=== PATIENT | female | born 1980 | race Caucasian/White ===

== ENCOUNTER 2017-10-23 14:49 | Emergency (ER) | payer OTHER ==
[2017-10-23] MEDS ORDERED: Ondansetron 4 MG/2 ML SDV IVPUSH ONE (15:28)
[2017-10-23] MEDS ORDERED: Famotidine 20 MG/2 ML SDV IVPUSH ONE (15:28)
[2017-10-23] MEDS ORDERED: Sodium Chloride 0.9% 10 ML Syringe FLUSH PRN (15:28)
[2017-10-23] MEDS ORDERED: HYDROmorphone 1 MG/ML Syringe IVPUSH ONE (15:28)
[2017-10-23] MEDS ORDERED: Sodium Chloride 0.9% 1,000 ML IV SCH (15:30)
--- NOTE | 2017-10-23 15:38 | EDM.PDOC ---
ED HPI GENERAL MEDICAL PROBLEM - General Chief Complaint: Gastrointestinal Problem Stated Complaint: DIARRHEA/VOMITING Time Seen by Provider: 10/23/17 15:09 Source of Information: Reports: Patient, RN Notes Reviewed - History of Present Illness INITIAL COMMENTS - FREE TEXT/NARRATIVE: 37-year-old female comes in with upper abdominal pain, nausea and vomiting. She has been having difficulty with upper abdominal discomfort worsening over the past several weeks. She's had multiple clinic visits for this. She was started on Carafate 3 days ago and that did seem to be helping. He did go out with a family member to our local [employer] restaurant at noon today but shortly after eating started to develop the upper abdominal pain, burning discomfort nausea and vomiting. The pain does not radiate to her back. Her gallbladder has been previously removed. She already is on high-dose Prilosec 40 mg twice daily. She does have an appointment to see Dr. Fernandez to get up set up for upper GI scope in 2 days. She did take some mag citrate a few days ago, did have some hard stool after that. Abdominal Pain Score (Numeric/FACES): 5 - Related Data Allergies Allergy/AdvReac Type Severity Reaction Status Date / Time latex Allergy Rash Verified 10/23/17 15:02 Home Meds: Home Meds FLUoxetine HCl [Fluoxetine HCl] 40 mg PO DAILY 12/12/14 [History] Omeprazole 40 mg PO BID 10/23/17 [History] Ondansetron HCl [Zofran] 4 mg PO Q6HR PRN 10/23/17 [History] Sucralfate 1 gm PO QID 10/23/17 [History] Past Medical History HEENT History: Reports: Impaired Vision Cardiovascular History: Reports: Other (See Below) Other Cardiovascular History: palpitations at night in the past few weeks Gastrointestinal History: Reports: Other (See Below) Other Gastrointestinal History: IBS 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: Psychiatric History: Reports: Anxiety, Depression - Infectious Disease History Infectious Disease History: Reports: Chicken Pox - Past Surgical History HEENT Surgical History: Reports: Adenoidectomy, Myringotomy w Tube(s), Tonsillectomy Social & Family History - Tobacco Use Smoking Status *Q: Never Smoker Second Hand Smoke Exposure: No - Caffeine Use Caffeine Use: Reports: Coffee, Soda Other Caffeine Use: occassionally - Alcohol Use Days Per Week of Alcohol Use: 0 - Recreational Drug Use Recreational Drug Use: No ED ROS GENERAL - Review of Systems Review Of Systems: See Below Constitutional: Denies: Fever, Chills HEENT: Denies: Throat Pain Respiratory: Denies: Shortness of Breath, Pleuritic Chest Pain Cardiovascular: Reports: Chest Pain (She does have some burning discomfort upper mid chest) GI/Abdominal: Reports: Abdominal Pain (Upper mid abdominal pain and burning), Nausea, Vomiting. Denies: Diarrhea Musculoskeletal: Denies: Back Pain Skin: Reports: No Symptoms Neurological: Reports: No Symptoms ED EXAM, GI/ABD - Physical Exam Exam: See Below General Appearance: Alert, Moderate Distress Throat/Mouth: Normal Inspection, Normal Oropharynx Head: No: Facial Swelling Neck: Supple, Full Range of Motion Respiratory/Chest: No Respiratory Distress, Lungs Clear, Normal Breath Sounds Cardiovascular: Regular Rate, Rhythm GI/Abdominal Exam: Tender (Very tender upper mid abdomen, abdomen otherwise soft and nontender). No: Guarding, Rebound Back Exam: No: CVA Tenderness (L), CVA Tenderness (R) Extremities: Normal Inspection, Normal Range of Motion Neurological: Alert, Oriented, No Motor/Sensory Deficits Skin Exam: Warm, Dry, Normal Color Course - Vital Signs Last Recorded V/S: Last Vital Signs Temp 97.7 F 10/23/17 15:05 Pulse 73 10/23/17 18:37 Resp 15 10/23/17 18:37 BP 130/68 10/23/17 18:37 Pulse Ox 100 10/23/17 18:37 - Orders/Labs/Meds Orders: Active Orders 24 hr Category Date Time Status Peripheral IV Care [RC] . DIRECTED Care 10/23/17 15:29 Active Abdomen 2V AP Flat Upright [CR] Stat Exams 10/23/17 16:24 Taken Sodium Chloride 0.9% [Normal Saline] 1,000 ml Med 10/23/17 15:30 Active IV ONETIME Sodium Chloride 0.9% [Saline Flush] Med 10/23/17 15:28 Active 10 ml FLUSH ASDIRECTED PRN Peripheral IV Insertion Adult [OM.PC] Stat Oth 10/23/17 15:28 Ordered Medication Orders Sodium Chloride (Normal Saline) 1,000 mls @ 999 mls/hr IV ONETIME HALI Last Admin: 10/23/17 15:38 Dose: 999 mls/hr Sodium Chloride (Saline Flush) 10 ml FLUSH ASDIRECTED PRN PRN Reason: Keep Vein Open Last Admin: 10/23/17 15:48 Dose: 10 ml Labs: Laboratory Tests 10/23/17 10/23/17 10/23/17 Range/Units 15:30 15:30 15:30 WBC 7.76 (3.98-10.04) K/mm3 RBC 4.88 (3.98-5.22) M/mm3 Hgb 13.4 (11.2-15.7) gm/L Hct 41.1 (34.1-44.9) % MCV 84.2 (79.4-94.8) fl MCH 27.5 (25.6-32.2) pg MCHC 32.6 (32.2-35.5) g/dl RDW Std Deviation 43.5 (36.4-46.3) fL Plt Count 214 (182-369) K/mm3 MPV 11.3 (9.4-12.3) fl Neut % (Auto) 61.7 (34.0-71.1) % Lymph % (Auto) 22.7 (19.3-51.7) % Moca % (Auto) 12.1 (4.7-12.5) % Eos % (Auto) 2.4 (0.7-5.8) Baso % (Auto) 0.8 (0.1-1.2) % Neut # (Auto) 4.79 (1.56-6.13) K/mm3 Lymph # (Auto) 1.76 (1.18-3.74) K/mm3 Moca # (Auto) 0.94 H (0.24-0.36) K/mm3 Eos # (Auto) 0.19 (0.04-0.36) K/mm3 Baso # (Auto) 0.06 (0.01-0.08) K/mm3 Sodium 142 (136-145) mEq/L Potassium 4.1 (3.5-5.1) mEq/L Chloride 106 (98-107) mEq/L Carbon Dioxide 25 (21-32) mEq/L Anion Gap 15.1 H (5-15) BUN 8 (7-18) mg/dL Creatinine 0.7 (0.55-1.02) mg/dL Est Cr Clr Drug Dosing 121.30 mL/min Estimated GFR (MDRD) > 60 (>60) mL/min BUN/Creatinine Ratio 11.4 L (14-18) Glucose 126 H (74-106) mg/dL Calcium 8.5 (8.5-10.1) mg/dL Total Bilirubin 0.2 (0.2-1.0) mg/dL AST 25 (15-37) U/L ALT 36 (14-59) U/L Alkaline Phosphatase 66 (46-116) U/L Total Protein 7.0 (6.4-8.2) g/dl Albumin 3.2 L (3.4-5.0) g/dl Globulin 3.8 gm/dL Albumin/Globulin Ratio 0.8 L (1-2) Lipase 233 (73-393) U/L HCG, Qual Negative (NEGATIVE) Meds: Medications Generic Name Dose Route Start Last Admin Trade Name Freq PRN Reason Stop Dose Admin Sodium Chloride 1,000 mls @ 999 mls/hr 10/23/17 15:30 10/23/17 15:38 Normal Saline IV 999 mls/hr ONETIME HALI Administration Sodium Chloride 10 ml 10/23/17 15:28 10/23/17 15:48 Saline Flush FLUSH 10 ml ASDIRECTED PRN Administration Keep Vein Open Discontinued Medications Generic Name Dose Route Start Last Admin Trade Name Freq PRN Reason Stop Dose Admin Famotidine 20 mg 10/23/17 15:28 10/23/17 15:43 Pepcid IVPUSH 10/23/17 15:29 20 mg ONETIME ONE Administration Hydromorphone HCl 0.5 mg 10/23/17 15:28 10/23/17 15:41 Dilaudid IVPUSH 10/23/17 15:29 0.5 mg ONETIME ONE Administration Hydromorphone HCl 0.5 mg 10/23/17 16:24 10/23/17 16:35 Dilaudid IVPUSH 10/23/17 16:25 0.5 mg ONETIME ONE Administration Lorazepam 0.25 mg 10/23/17 17:46 10/23/17 17:57 Ativan IVPUSH 10/23/17 17:47 0.25 mg ONETIME ONE Administration Ondansetron HCl 4 mg 10/23/17 15:28 10/23/17 15:38 Zofran IVPUSH 10/23/17 15:29 4 mg ONETIME ONE Administration - Re-Assessments/Exams Free Text/Narrative Re-Assessment/Exam: 10/23/17 17:57. White blood count is normal, chemistries are relatively okay. Have given a total of 2 L of fluid, IV Zofran, IV Dilaudid 0.5 mg IV 2. With that she is resting quite a bit more comfortably although still having some sensation of discomfort. Done a flat and upright of the abdomen and that looks fine. We'll give 0.25 mg Ativan at this time, discharge instructions as documented Departure - Departure Time of Disposition: 17:10 Disposition: Home, Self-Care 01 Condition: Fair Clinical Impression: Vomiting Gastritis Qualifiers: Gastritis type: unspecified gastritis Chronicity: acute Gastritis bleeding: presence of bleeding unspecified Qualified Code(s): K29.00 - Acute gastritis without bleeding - Discharge Information Instructions: Gastritis, Adult, [id number], Nausea and Vomiting, Adult Referrals: Jyoti Avila RELOC[employer] COMMISSIONER [Primary Care Provider] - Forms: ED Department Discharge, ED Return to Work/School Form Additional Instructions: Clear liquids this evening, than very careful bland diet as tolerated. Eat and drink small amounts at a time only. Continue current medications. You may take occasional Maalox or Mylanta in addition if needed for burning discomfort of chest or upper abdomen. See Dr. Fernandez Tram as planned, return to ED as needed. - My Orders Last 24 Hours: My Active Orders 10/23/17 15:28 Sodium Chloride 0.9% [Saline Flush] 10 ml FLUSH ASDIRECTED PRN Peripheral IV Insertion Adult [OM.PC] Stat 10/23/17 15:29 Peripheral IV Care [RC] . DIRECTED 10/23/17 15:30 Sodium Chloride 0.9% [Normal Saline] 1,000 ml IV ONETIME 10/23/17 16:24 Abdomen 2V AP Flat Upright [CR] Stat - Assessment/Plan Last 24 Hours: My Active Orders 10/23/17 15:28 Sodium Chloride 0.9% [Saline Flush] 10 ml FLUSH ASDIRECTED PRN Peripheral IV Insertion Adult [OM.PC] Stat 10/23/17 15:29 Peripheral IV Care [RC] . DIRECTED 10/23/17 15:30 Sodium Chloride 0.9% [Normal Saline] 1,000 ml IV ONETIME 10/23/17 16:24 Abdomen 2V AP Flat Upright [CR] Stat
[2017-10-23] MEDS ORDERED: HYDROmorphone 0.5 MG/0.5 ML Syringe IVPUSH ONE (16:24)
[2017-10-23] MEDS ORDERED: LORazepam 2 MG/ML SDV IVPUSH ONE (17:46)
[2017-10-23 18:37] VITALS: BP 130/68
--- NOTE | 2017-10-24 12:13 | CR ---
Abdomen: Supine and upright views of the abdomen were obtained. Comparison: No prior study. Surgical clips are seen from prior cholecystectomy. Bowel gas pattern is normal. No abnormal calcifications or soft tissue abnormality is identified. Slight scoliosis is present within the spine. No free air is seen on the upright view. Impression: 1. Incidental findings. Nothing acute is appreciated on two-view abdominal x-ray. Diagnostic code #2
== END 2017-10-23 18:40 | disposition home or self-care (01) ==
LOC: JD.ED 14:49
DX: K29.00 Acute gastritis without bleeding (principal); F32.9 Major depressive disorder, single episode, unspecified; Z79.899 Other long term (current) drug therapy; Z91.040 Latex allergy status
CPT/HCPCS: 36415; 74019; 80053; 83690; 84703; 85025; 96361; 96374; 96375; 96376; 99284; J1170; J2060; J2405; J7040; J7050

== ENCOUNTER 2017-11-03 06:56 | Day surgery (SDC) | payer OTHER ==
[~2017-11-03 06:56] MED LIST: Lactated Ringers 1,000 ML IV SCH; Lidocaine 1%/Sod Bicarbonate in NS 8.4% 1 ML Syringe IV PRN; Sodium Chloride 0.9% 10 ML Syringe FLUSH PRN
[2017-11-03] MEDS ORDERED: Lidocaine 1% 4 ML ONE (07:09)
[2017-11-03] MEDS ORDERED: fentaNYL 100 MCG/2 ML SDV ONE (07:10)
[2017-11-03] MEDS ORDERED: Propofol 200 MG/20 ML SDV ONE (07:10)
--- NOTE | 2017-11-03 07:25 | PCM.PREANE ---
Preanesthetic Assessment - Anesthesia/Transfusion/Family Hx Anesthesia History: Prior Anesthesia Without Reaction Family History of Anesthesia Reaction: No Transfusion History: No Prior Transfusion(s) Intubation History: Unknown - Review of Systems General: No Symptoms Pulmonary: No Symptoms Cardiovascular: No Symptoms, Palpitations (occasional with anxiety attack) Gastrointestinal: No Symptoms (GERD), Diarrhea (History of IBS) Neurological: No Symptoms, Headache Other: Reports: Sinus Problem (allergic rhinitis), Depression, Anxiety - Physical Assessment NPO Status Date: 11/02/17 NPO Status Time: 20:30 Pulse: 75 O2 Sat by Pulse Oximetry: 96 Respiratory Rate: 16 Blood Pressure: 112/78 Temperature: 36.3 C Vital Signs: Last Vital Signs Temp 36.3 C 11/03/17 07:00 Pulse 75 11/03/17 07:00 Resp 16 11/03/17 07:00 BP 112/78 11/03/17 07:00 Pulse Ox 96 11/03/17 07:00 Height: 1.78 m Weight: 124.284 kg ASA Class: 2 Mental Status: Alert & Oriented x3 Airway Class: Mallampati = 2 Dentition: Reports: Normal Dentition, Raynham(s), Caries Thyro-Mental Finger Breadths: 3 Mouth Opening Finger Breadths: 3 ROM/Head Extension: Full Lungs: Clear to Auscultation, Normal Respiratory Effort Cardiovascular: Regular Rate, Regular Rhythm, No Murmurs - Lab Values: Lab values reviewed and noted and within acceptable ranges to proceed with scheduled procedure. - Imaging/EKG Impressions: EKG: SR rate=60 - Allergies Allergies/Adverse Reactions: Allergies Allergy/AdvReac Type Severity Reaction Status Date / Time latex Allergy Anaphylactic Verified 11/02/17 14:39 Shock - Anesthesia Plan Pre-Op Medication Ordered: None - Acknowledgements Anesthesia Type Planned: MAC Pt an Appropriate Candidate for the Planned Anesthesia: Yes Alternatives and Risks of Anesthesia Discussed w Pt/Guardian: Yes Pt/Guardian Understands and Agrees with Anesthesia Plan: Yes PreAnesthesia Questionnaire HEENT History: Reports: Allergic Rhinitis, Impaired Vision, Other (See Below) Other HEENT History: right hearing loss, sore throat Cardiovascular History: Reports: Other (See Below) Other Cardiovascular History: palpitations at night Respiratory History: Reports: Other (See Below) Other Respiratory History: cough Gastrointestinal History: Reports: Gastritis, Irritable Bowel Syndrome, Other ( See Below) Other Gastrointestinal History: epigastric pain Genitourinary History: Reports: None COUNTER HAND History: Reports: Musculoskeletal History: Reports: Gout, Other (See Below) Other Musculoskeletal History: foot tendinitis, left foot pain Neurological History: Reports: Headaches, Chronic Psychiatric History: Reports: Anxiety, Depression Endocrine/Metabolic History: Reports: Vitamin D Deficiency, Other (See Below) Other Endocrine/Metabolic History: hair loss, goiter Hematologic History: Reports: None Immunologic History: Reports: None Oncologic (Cancer) History: Reports: None Dermatologic History: Reports: Other (See Below) Other Dermatologic History: contact dermatitis, plantar wart to foot, folliculitis - Infectious Disease History Infectious Disease History: Reports: Chicken Pox - Past Surgical History Head Surgeries/Procedures: Reports: None HEENT Surgical History: Reports: Adenoidectomy, Myringotomy w Tube(s), Tonsillectomy Cardiovascular Surgical History: Reports: None Respiratory Surgical History: Reports: None GI Surgical History: Reports: Cholecystectomy Female Surgical History: Reports: None Male Surgical History: Reports: None Neurological Surgical History: Reports: None Musculoskeletal Surgical History: Reports: None Oncologic Surgical History: Reports: None - SUBSTANCE USE Smoking Status *Q: Never Smoker Second Hand Smoke Exposure: No Days Per Week of Alcohol Use: 0 Recreational Drug Use History: No - HOME MEDS Home Medications: Home Meds FLUoxetine HCl [Fluoxetine HCl] 40 mg PO DAILY 12/12/14 [History] Omeprazole 40 mg PO BID 10/23/17 [History] Ondansetron HCl [Zofran] 4 mg PO Q6HR PRN 10/23/17 [History] Sucralfate 1 gm PO QID 10/23/17 [History] Cholecalciferol (Vitamin D3) [Vitamin D3] 50,000 unit PO WEEKLY 11/02/17 [ History] LORazepam [LORazepam] 0.5 mg PO TID PRN 11/02/17 [History] Mirabegron [Myrbetriq] 25 mg PO DAILY 11/02/17 [History] - CURRENT (IN HOUSE) MEDS Current Meds: Current Medications Lactated Ringer's (Ringers, Lactated) 1,000 mls @ 125 mls/hr IV ASDIRECTED HALI Stop: 11/03/17 23:00 Lidocaine/Sodium Bicarbonate (Buffered Lidocaine 1% In Ns 8.4%) 0.25 ml IV ONETIME PRN PRN Reason: Prior to IV Start Stop: 11/03/17 18:00 Sodium Chloride (Saline Flush) 10 ml FLUSH ASDIRECTED PRN PRN Reason: Keep Vein Open Stop: 11/03/17 18:00 Discontinued Medications Fentanyl (Sublimaze) Confirm Administered Dose 100 mcg .ROUTE .STK-MED ONE Stop: 11/03/17 07:11 Lidocaine HCl (Xylocaine-Mpf 1%) Confirm Administered Dose 4 mls @ as directed .ROUTE .STK-MED ONE Stop: 11/03/17 07:10 Propofol (Diprivan 20 Ml) Confirm Administered Dose 200 mg .ROUTE .STK-MED ONE Stop: 11/03/17 07:11
[2017-11-03] MEDS ORDERED: Midazolam 1 MG/ML 2 ML SDV ONE (07:36)
--- NOTE | 2017-11-03 08:23 | PCM48HPAN ---
Post Anesthesia Note - EVALUATION WITHIN 48HRS OF ANESTHETIC Vital Signs in Normal Range: Yes Patient Participated in Evaluation: Yes Respiratory Function Stable: Yes Airway Patent: Yes Cardiovascular Function Stable: Yes Hydration Status Stable: Yes Pain Control Satisfactory: Yes Nausea and Vomiting Control Satisfactory: Yes Mental Status Recovered: Yes
[2017-11-03 08:27] VITALS: BP 136/85
--- NOTE | 2017-11-03 08:34 | PCM.OPNOTE ---
- General Post-Op/Procedure Note Date of Surgery/Procedure: 11/03/17 Operative Procedure(s): Esophagogastroduodenoscopy with cold forceps biopsy of the antrum body of the stomach and GE junction and proximal esophagus Findings: Some retained food within the stomach but otherwise normal examination Pre Op Diagnosis: Epigastric abdominal pain with a history of delayed gastric emptying Post-Op Diagnosis: Normal endoscopic evaluation Anesthesia Technique: MAC Primary Surgeon: Braden Fernandez Pathology: Proximal esophageal GE junction body of the stomach and antral biopsies EBL in mLs: 0 Complications: None Condition: Good Free Text/Narrative:: After adequate sedation and IV analgesia was obtained with monitoring the patient was placed on her left side. Through a bite block a lubricated upper endoscope was inserted into the esophagus and advanced towards the stomach without difficulty. There was some retained food within the body of the stomach. This was not a bezoar. The scope was advanced towards the antrum and then into the duodenum without difficulty. The second and first part of the duodenum were endoscopically normal with no mass lesions or inflammatory changes seen. There was no scarring within the area of the pylorus or distal antrum. Because of her history I took random biopsy in the antrum for histologic review. Within the retroflexed view there was no hiatal hernia. The cardiac and fundic regions were normal. A biopsy was taken within the body of the stomach for evaluation. There was no peptic change seen. The GE junction was sharp and normal. I took a random biopsy for histologic review. The body of the esophagus was normal but because of her history of took I a random biopsy within the proximal third of the esophagus. The vocal cords were briefly visualized on extubation and were normal. Air was removed as I finished the procedure which she tolerated well. There were no procedural complications.
== END 2017-11-03 08:52 | disposition home or self-care (01) ==
LOC: JD.SDS 06:56
PROVIDERS: ATTEND Surgery
DX: K22.8 Other specified diseases of esophagus (principal); J30.9 Allergic rhinitis, unspecified; F41.9 Anxiety disorder, unspecified; L25.9 Unspecified contact dermatitis, unspecified cause; F32.9 Major depressive disorder, single episode, unspecified; K21.9 Gastro-esophageal reflux disease without esophagitis; B07.0 Plantar wart; H90.5 Unspecified sensorineural hearing loss; E55.9 Vitamin D deficiency, unspecified; Z91.040 Latex allergy status; Z79.899 Other long term (current) drug therapy; Z90.49 Acquired absence of other specified parts of digestive tract; Z90.89 Acquired absence of other organs
CPT/HCPCS: 43239; J2250; J3010; J7120; 00731; J2001; J2704

== ENCOUNTER 2018-02-11 04:52 | Emergency (ER) | payer OTHER ==
[2018-02-11] MEDS ORDERED: Sodium Chloride 0.9% 10 ML Syringe FLUSH PRN (05:23)
[2018-02-11] MEDS ORDERED: Ketorolac 30 MG/ML SDV IVPUSH ONE (05:24)
--- NOTE | 2018-02-11 05:31 | EDM.PDOC ---
ED HPI GENERAL MEDICAL PROBLEM - General Chief Complaint: Neck Problem Stated Complaint: CAN'T MOVE HEAD/STIFF NECK Time Seen by Provider: 02/11/18 05:18 Source of Information: Reports: Patient History Limitations: Reports: No Limitations - History of Present Illness INITIAL COMMENTS - FREE TEXT/NARRATIVE: The patient presents with a headache, neck stiffness and neck pain. She has been going to physical therapy for right shoulder pain. She woke up with some stiffness in her neck yesterday. She was able to work and she had no other problems. This morning she woke up and it is much worse. She cannot move her head without sever pain. She did not injure her neck in any way. She has been having headaches for about 1 week. She has no numbness or weakness with it. She has no fever, chills, cough, chest pain, shortness of breath, abdominal pain , nausea or vomiting. Onset: Gradual Duration: Day(s): (Yesterday) Location: Reports: Head, Neck Quality: Reports: Sharp Severity: Severe Improves with: Reports: Immobilization Worsens with: Reports: Movement Context: Reports: Activity (She woke up with it yesterday and the pain is much worse today) Associated Symptoms: Reports: Headaches. Denies: Chest Pain, Cough, Fever/ Chills, Nausea/Vomiting, Shortness of Breath Neck Pain Score (Numeric/FACES): 8 - Related Data Allergies Allergy/AdvReac Type Severity Reaction Status Date / Time latex Allergy Anaphylactic Verified 02/11/18 05:03 Shock Home Meds: Home Meds Omeprazole 40 mg PO BID PRN 10/23/17 [History] Cholecalciferol (Vitamin D3) [Vitamin D3] 1,000 unit PO WEEKLY 11/02/17 [History ] Cyclobenzaprine [Flexeril] 10 mg PO TID PRN #20 tab 02/11/18 [Rx] Hydrocodone/Acetaminophen [Hydrocodon-Acetaminophen 5-325] 1 - 2 each PO Q6HR PRN #20 tablet 02/11/18 [Rx] Past Medical History HEENT History: Reports: Impaired Vision Other HEENT History: right hearing loss, sore throat Cardiovascular History: Reports: Other (See Below) Other Cardiovascular History: palpitations at night Respiratory History: Reports: Other (See Below) Other Respiratory History: cough Gastrointestinal History: Reports: Other (See Below) Other Gastrointestinal History: IBS Genitourinary History: Reports: None [employer] History: Reports: Musculoskeletal History: Reports: Gout, Other (See Below) Other Musculoskeletal History: foot tendinitis, left foot pain Neurological History: Reports: Headaches, Chronic Psychiatric History: Reports: Anxiety, Depression Endocrine/Metabolic History: Reports: Vitamin D Deficiency, Other (See Below) Other Endocrine/Metabolic History: hair loss, goiter Hematologic History: Reports: None Immunologic History: Reports: None Oncologic (Cancer) History: Reports: None Dermatologic History: Reports: Other (See Below) Other Dermatologic History: contact dermatitis, plantar wart to foot, folliculitis - Infectious Disease History Infectious Disease History: Reports: Chicken Pox - Past Surgical History Head Surgeries/Procedures: Reports: None Respiratory Surgical History: Reports: None Female Surgical History: Reports: None Neurological Surgical History: Reports: None Musculoskeletal Surgical History: Reports: None Oncologic Surgical History: Reports: None Social & Family History - Tobacco Use Smoking Status *Q: Never Smoker - Caffeine Use Caffeine Use: Reports: None Other Caffeine Use: occassionally - Recreational Drug Use Recreational Drug Use: No ED ROS GENERAL - Review of Systems Review Of Systems: See Below Constitutional: Reports: No Symptoms HEENT: Reports: No Symptoms Respiratory: Reports: No Symptoms Cardiovascular: Reports: No Symptoms Endocrine: Reports: No Symptoms GI/Abdominal: Reports: No Symptoms : Reports: No Symptoms Musculoskeletal: Reports: Neck Pain Neurological: Reports: Headache ED EXAM, UPPER BACK/NECK PAIN - Physical Exam Exam: See Below Exam Limited By: No Limitations General Appearance: Alert, No Apparent Distress Ears Exam: Normal External Exam Nose Exam: Normal Inspection Head Exam: Atraumatic, Normocephalic Neck Exam: Muscle Spasm (Right side), Tender Lateral (right side) Cardiovascular/Respiratory: Regular Rate, Rhythm, No M/R/G, Normal Peripheral Pulses, Normal Breath Sounds, No Respiratory Distress GI/Abdominal: Soft, Non-Tender, No Organomegaly, No Mass Extremities: Normal Inspection Neurologic: No Motor/Sensory Deficits, Alert, Normal Mood/Affect, Oriented x 3 Course - Vital Signs Last Recorded V/S: Last Vital Signs Temp 96.1 F 02/11/18 04:57 Pulse 71 02/11/18 04:57 Resp 20 02/11/18 04:57 BP 118/85 02/11/18 04:57 Pulse Ox 97 02/11/18 04:57 - Orders/Labs/Meds Orders: Active Orders 24 hr Category Date Time Status Cardiac Monitoring [RC] . DIRECTED Care 02/11/18 05:23 Active Peripheral IV Care [RC] . DIRECTED Care 02/11/18 05:23 Active Cervical Spine wo Cont [CT] Stat Exams 02/11/18 05:24 Taken Head wo Cont [CT] Stat Exams 02/11/18 05:23 Taken C-REACTIVE PROTEIN [CHEM] Stat Lab 02/11/18 05:30 Results COMPREHENSIVE METABOLIC PN,CMP [CHEM] Stat Lab 02/11/18 05:30 Results HYDROmorphone [Dilaudid] Med 02/11/18 07:01 Once 0.5 mg IVPUSH ONETIME ONE Sodium Chloride 0.9% [Saline Flush] Med 02/11/18 05:23 Active 10 ml FLUSH ASDIRECTED PRN Peripheral IV Insertion Adult [OM.PC] Stat Oth 02/11/18 05:23 Ordered Medication Orders Sodium Chloride (Saline Flush) 10 ml FLUSH ASDIRECTED PRN PRN Reason: Keep Vein Open Labs: Laboratory Tests 02/11/18 02/11/18 Range/Units 05:30 05:30 WBC 9.73 (3.98-10.04) K/mm3 RBC 5.01 (3.98-5.22) M/mm3 Hgb 13.6 (11.2-15.7) gm/L Hct 42.0 (34.1-44.9) % MCV 83.8 (79.4-94.8) fl MCH 27.1 (25.6-32.2) pg MCHC 32.4 (32.2-35.5) g/dl RDW Std Deviation 44.2 (36.4-46.3) fL Plt Count 254 (182-369) K/mm3 MPV 11.5 (9.4-12.3) fl Neut % (Auto) 60.2 (34.0-71.1) % Lymph % (Auto) 26.5 (19.3-51.7) % [place] % (Auto) 9.5 (4.7-12.5) % Eos % (Auto) 2.7 (0.7-5.8) Baso % (Auto) 0.8 (0.1-1.2) % Neut # (Auto) 5.86 (1.56-6.13) K/mm3 Lymph # (Auto) 2.58 (1.18-3.74) K/mm3 [place] # (Auto) 0.92 H (0.24-0.36) K/mm3 Eos # (Auto) 0.26 (0.04-0.36) K/mm3 Baso # (Auto) 0.08 (0.01-0.08) K/mm3 Sodium 140 (136-145) mEq/L Potassium 4.1 (3.5-5.1) mEq/L Chloride 105 (98-107) mEq/L Carbon Dioxide 22 (21-32) mEq/L Anion Gap 17.1 H (5-15) BUN 12 (7-18) mg/dL Creatinine 0.6 (0.55-1.02) mg/dL Est Cr Clr Drug Dosing 141.52 mL/min Estimated GFR (MDRD) > 60 (>60) mL/min BUN/Creatinine Ratio 20.0 H (14-18) Glucose 113 H (74-106) mg/dL Calcium 8.8 (8.5-10.1) mg/dL Total Bilirubin 0.2 (0.2-1.0) mg/dL AST 15 (15-37) U/L ALT 30 (14-59) U/L Alkaline Phosphatase 62 (46-116) U/L C-Reactive Protein 1.4 H* (<1.0) mg/dL Globulin 3.9 gm/dL Albumin/Globulin Ratio 0.9 L (1-2) Meds: Medications Generic Name Dose Route Start Last Admin Trade Name Freq PRN Reason Stop Dose Admin Sodium Chloride 10 ml 02/11/18 05:23 Saline Flush FLUSH ASDIRECTED PRN Keep Vein Open Discontinued Medications Generic Name Dose Route Start Last Admin Trade Name Freq PRN Reason Stop Dose Admin Diazepam 5 mg 02/11/18 05:24 02/11/18 05:42 Valium IVPUSH 02/11/18 05:25 5 mg ONETIME ONE Administration Ketorolac Tromethamine 30 mg 02/11/18 05:24 02/11/18 05:40 Toradol IVPUSH 02/11/18 05:25 30 mg ONETIME ONE Administration - Re-Assessments/Exams Free Text/Narrative Re-Assessment/Exam: 02/11/18 05:30 I ordered an IV saline lock, valium 5mg IV, toradol 30mg IV, labs and a CT of her head and neck. 02/11/18 07:02 Her labs look good. The CT of her head and cervical spine looks good. She feels a little better but now she has more of a headache. I will give her a dose of dilaudid and I will need to get her on some flexeril and hydrocodone for pain. She is already in PT for her shoulder. Departure - Departure Time of Disposition: 07:05 Disposition: Home, Self-Care 01 Condition: Good Clinical Impression: Cervical strain Qualifiers: Encounter type: initial encounter Qualified Code(s): S16.1XXA - Strain of muscle, fascia and tendon at neck level, initial encounter - Discharge Information Prescriptions: Hydrocodone/Acetaminophen [Hydrocodon-Acetaminophen 5-325] 1 - 2 each PO Q6HR PRN #20 tablet PRN Reason: Pain Cyclobenzaprine [Flexeril] 10 mg PO TID PRN #20 tab PRN Reason: Pain Referrals: Jyoti Avila [employer] [Primary Care Provider] - 1 Week Forms: ED Department Discharge Additional Instructions: Take an antiinflammatory such as motrin or aleve. You can also take some flexeril and hydrocodone for pain. Try ice or heat and use which ever feels better. Follow up with physical therapy and Jyoti Avila. Please return if you are worse. - My Orders Last 24 Hours: My Active Orders 02/11/18 05:23 Cardiac Monitoring [RC] . DIRECTED Peripheral IV Care [RC] . DIRECTED Head wo Cont [CT] Stat Sodium Chloride 0.9% [Saline Flush] 10 ml FLUSH ASDIRECTED PRN Peripheral IV Insertion Adult [OM.PC] Stat 02/11/18 05:24 Cervical Spine wo Cont [CT] Stat 02/11/18 05:30 C-REACTIVE PROTEIN [CHEM] Stat COMPREHENSIVE METABOLIC PN,CMP [CHEM] Stat 02/11/18 07:01 HYDROmorphone [Dilaudid] 0.5 mg IVPUSH ONETIME ONE - Assessment/Plan Last 24 Hours: My Active Orders 02/11/18 05:23 Cardiac Monitoring [RC] . DIRECTED Peripheral IV Care [RC] . DIRECTED Head wo Cont [CT] Stat Sodium Chloride 0.9% [Saline Flush] 10 ml FLUSH ASDIRECTED PRN Peripheral IV Insertion Adult [OM.PC] Stat 02/11/18 05:24 Cervical Spine wo Cont [CT] Stat 02/11/18 05:30 C-REACTIVE PROTEIN [CHEM] Stat COMPREHENSIVE METABOLIC PN,CMP [CHEM] Stat 02/11/18 07:01 HYDROmorphone [Dilaudid] 0.5 mg IVPUSH ONETIME ONE
[2018-02-11] MEDS ORDERED: HYDROmorphone 0.5 MG/0.5 ML SYRINGE IVPUSH ONE (07:01)
[2018-02-11 07:37] VITALS: BP 117/74
--- NOTE | 2018-02-11 09:12 | CT ---
Head CT Technique: Multiple axial sections through the brain were obtained. Intravenous contrast was not utilized. Comparison: Prior head CT exam of 10/21/16. Findings: Ventricles along with basal cisterns and sulci over the convexities are within normal limits for the patient's age. No abnormal parenchymal densities are seen. No evidence of intracranial hemorrhage. No midline shift or mass effect is seen. No acute osseous abnormality is seen. Incidental small retention cyst is noted within the right maxillary sinus measuring around 3 mm. Impression: 1. Incidental small retention cyst within the right maxillary sinus. 2. No acute intracranial abnormality is seen. Diagnostic code #2 I agree with preliminary report from [facility], finalized at 02/11/18, 7:42 AM Central Time
--- NOTE | 2018-02-11 09:51 | CT ---
CT cervical spine Technique: Multiple axial sections were obtained from above C1 inferiorly to the top of T3. Reconstructed sagittal and coronal images were reviewed. Comparison: No prior cervical spine imaging is available. Findings: Posterior spurring is noted at C5-C6. Vertebral bodies and posterior arches are intact with no fracture being seen. No bony central or bony neural foraminal stenosis is seen. No abnormal subluxation is seen on the reconstructed sagittal images. Mild scoliosis is noted on the reconstructed coronal view. Impression: 1. Minimal degenerative change and scoliosis. 2. Nothing acute is appreciated on CT study of the cervical spine. Diagnostic code #2 I agree with preliminary report from [facility], finalized at 02/11/18, 7:44 AM Central Time
== END 2018-02-11 07:36 | disposition home or self-care (01) ==
LOC: JD.ED 04:52
DX: S16.1XXA Strain of muscle, fascia and tendon at neck level, initial encounter (principal); Z91.040 Latex allergy status; Z79.899 Other long term (current) drug therapy; X58.XXXA Exposure to other specified factors, initial encounter
CPT/HCPCS: 36415; 70450; 72125; 80053; 85025; 86140; 96374; 96375; 99284; J1170; J1885; J3360; J7050

== ENCOUNTER 2018-11-18 06:54 | Day surgery (SDC) | payer OTHER ==
[~2018-11-18 06:54] MED LIST changes: -Lactated Ringers 1,000 ML IV SCH; +Lidocaine 1%/Sod Bicarbonate in NS 8.4% 1 ML Syringe IDERM PRN; -Lidocaine 1%/Sod Bicarbonate in NS 8.4% 1 ML Syringe IV PRN
--- NOTE | 2018-11-18 07:03 | PCM.PREANE ---
Preanesthetic Assessment - Anesthesia/Transfusion/Family Hx Anesthesia History: Prior Anesthesia Without Reaction Family History of Anesthesia Reaction: No Transfusion History: No Prior Transfusion(s) Intubation History: Unknown - Review of Systems General: No Symptoms, Fatigue Pulmonary: No Symptoms (No inhaler for two months.) Cardiovascular: No Symptoms, Lightheadedness Gastrointestinal: No Symptoms (GERD, delayed gastric emptying/History of gastric ulcers-no NSAIDS), Constipation, Diarrhea Neurological: No Symptoms, Headache Other: Reports: None (history of DVT/PE), Thyroid Problems, Sinus Problem ( allergic rhinitis), Anxiety - Physical Assessment NPO Status Date: 11/17/18 NPO Status Time: 21:00 Pulse: 77 O2 Sat by Pulse Oximetry: 95 Respiratory Rate: 12 Blood Pressure: 119/80 Temperature: 36.2 C Height: 1.78 m Weight: 127 kg ASA Class: 2 Mental Status: Alert & Oriented x3 Airway Class: Mallampati = 2 Dentition: Reports: Normal Dentition, Caries Thyro-Mental Finger Breadths: 3 Mouth Opening Finger Breadths: 3 ROM/Head Extension: Full Lungs: Clear to Auscultation, Normal Respiratory Effort Cardiovascular: Regular Rate, Regular Rhythm, No Murmurs - Lab Values: Labs reviewed and noted and within acceptable ranges to proceed with scheduled procedure. - Imaging/EKG Impressions: EKG: SR rate=70 CXR: unremarkable - Allergies Allergies/Adverse Reactions: Allergies Allergy/AdvReac Type Severity Reaction Status Date / Time latex Allergy Anaphylactic Verified 11/17/18 13:14 Shock - Anesthesia Plan Pre-Op Medication Ordered: None - Acknowledgements Anesthesia Type Planned: General Anesthesia Pt an Appropriate Candidate for the Planned Anesthesia: Yes Alternatives and Risks of Anesthesia Discussed w Pt/Guardian: Yes Pt/Guardian Understands and Agrees with Anesthesia Plan: Yes PreAnesthesia Questionnaire HEENT History: Reports: Allergic Rhinitis, Impaired Vision, Sinusitis, Other ( See Below) Other HEENT History: right hearing loss, sore throat, recurrent ear infeciton, sinus infections Cardiovascular History: Reports: Blood Clots/VTE/DVT, Other (See Below) Other Cardiovascular History: palpitations at night Respiratory History: Reports: PE, Other (See Below) Other Respiratory History: cough Gastrointestinal History: Reports: GERD, Other (See Below) Other Gastrointestinal History: IBS, delayed gastric emptyinh, gastric ulcer Genitourinary History: Reports: None ENROLLMENT NURSE History: Reports: , Other (See Below) Other OB/BYN History: abnormal uterine bleeding, vaginal discomfort Musculoskeletal History: Reports: Gout, Other (See Below) Other Musculoskeletal History: foot tendinitis, left foot pain Neurological History: Reports: Headaches, Chronic Psychiatric History: Reports: Anxiety, Depression Endocrine/Metabolic History: Reports: Vitamin D Deficiency, Other (See Below) Other Endocrine/Metabolic History: hair loss, goiter Hematologic History: Reports: None Immunologic History: Reports: None Oncologic (Cancer) History: Reports: None Dermatologic History: Reports: Other (See Below) Other Dermatologic History: contact dermatitis, plantar wart to foot, folliculitis - Infectious Disease History Infectious Disease History: Reports: Chicken Pox - Past Surgical History Head Surgeries/Procedures: Reports: None HEENT Surgical History: Reports: Adenoidectomy, Myringotomy w Tube(s), Tonsillectomy Cardiovascular Surgical History: Reports: None Respiratory Surgical History: Reports: None GI Surgical History: Reports: Cholecystectomy Female Surgical History: Reports: None Male Surgical History: Reports: None Endocrine Surgical History: Reports: None Neurological Surgical History: Reports: None Musculoskeletal Surgical History: Reports: None Oncologic Surgical History: Reports: None - SUBSTANCE USE Smoking Status *Q: Never Smoker Recreational Drug Use History: No - HOME MEDS Home Medications: Home Meds Omeprazole 40 mg PO DAILY PRN 10/23/17 [History] Cholecalciferol (Vitamin D3) [Vitamin D3] 1,000 unit PO Q72H 11/02/17 [History] Mirabegron [Myrbetriq] 25 mg PO DAILY 08/12/18 [History] Albuterol Sulfate [Proair Hfa] 1 - 2 puff INH Q4H PRN 11/17/18 [History] Loratadine/Pseudoephedrine [Alavert D-12 Allergy-Sinus] 1 tab PO BID PRN [History] - CURRENT (IN HOUSE) MEDS Current Meds: Current Medications Lactated Ringer's (Ringers, Lactated) 1,000 mls @ 125 mls/hr IV ASDIRECTED HALI Stop: 11/18/18 23:00 Lidocaine/Sodium Bicarbonate (Buffered Lidocaine 1% In Ns 8.4%) 0.25 ml IDERM ONETIME PRN PRN Reason: Prior to IV Start Stop: 11/18/18 18:00 Sodium Chloride (Saline Flush) 10 ml FLUSH ASDIRECTED PRN PRN Reason: Keep Vein Open Stop: 11/18/18 18:00
[2018-11-18] MEDS ORDERED: Succinylcholine/Normal Saline 100 MG/5 ML Syringe ONE (07:40)
[2018-11-18] MEDS ORDERED: Lactated Ringers 1,000 ML ONE (07:40)
[2018-11-18] MEDS ORDERED: Dexamethasone 4 MG/ML 5 ML MDV ONE (07:40)
[2018-11-18] MEDS ORDERED: Ondansetron 4 MG/2 ML SDV ONE (07:40)
[2018-11-18] MEDS ORDERED: Lidocaine 1% 6 ML ONE (07:40)
[2018-11-18] MEDS ORDERED: Propofol 200 MG/20 ML SDV ONE (07:41)
[2018-11-18] MEDS ORDERED: HYDROmorphone 0.5 MG/0.5 ML Syringe ONE (07:41)
[2018-11-18] MEDS ORDERED: fentaNYL 100 MCG/2 ML SDV ONE (07:42)
[2018-11-18] MEDS ORDERED: Midazolam 1 MG/ML 2 ML SDV ONE (07:42)
[2018-11-18] MEDS: Lactated Ringers 1,000 ML IV SCH ×2 (08:07→10:53)
[2018-11-18] MEDS ORDERED: diphenhydrAMINE 50 MG/ML SDV IVPUSH PRN (08:18)
[2018-11-18] MEDS ORDERED: HYDROmorphone 0.5 MG/0.5 ML Syringe IVPUSH PRN (08:18)
[2018-11-18] MEDS ORDERED: Ondansetron 4 MG/2 ML SDV IVPUSH PRN (08:18)
--- NOTE | 2018-11-18 09:08 | PCM.POSTAN ---
POST ANESTHESIA ASSESSMENT - MENTAL STATUS Mental Status: Alert - VITAL SIGNS Pulse Rate: 80 SaO2: 96 (2LPM nasal cannula) Resp Rate: 12 Blood Pressure: 147/93 Temperature: 36.3 C - RESPIRATORY Respiratory Status: Respiratory Rate WNL, Airway Patent, O2 Saturation Stable, Supplemental Oxygen - CARDIOVASCULAR CV Status: Pulse Rate WNL, Blood Pressure Stable - GASTROINTESTINAL GI Status: No Symptoms - POST OP HYDRATION Hydration Status: Adequate & Stable
[2018-11-18] MEDS: fentaNYL 100 MCG/2 ML SDV IVPUSH PRN ×2 (09:15→09:32)
--- NOTE | 2018-11-18 09:21 | PCM.OPNOTE ---
- General Post-Op/Procedure Note Date of Surgery/Procedure: 11/18/18 Operative Procedure(s): Hysteroscopy with dilation and curettage Findings: Grossly normal-appearing cervix, endometrial lining with increased thickness noted in the posterior and lateral sides of the uterus, grossly normal- appearing right tubal ostia, left tubal ostia was not well visualized Pre Op Diagnosis: Abnormal uterine bleeding, endometrial polyp on endometrial biopsy, menorrhagia with irregular menstrual cycle and dysmenorrhea Post-Op Diagnosis: Same but with thickened endometrial lining and no polyp visualized on hysteroscopy Anesthesia Technique: General ET Tube Primary Surgeon: Topher Sanches Anesthesia Provider: Liliya Amanda Leaf Sorter: Idris Miramontes ([place] student) Reason Leaf Sorter Was Necessary: Teaching Role of Leaf Sorter: Watching procedure in learning capacity Pathology: Endometrial curettings Fluid Replacement, Intraop: 600 Output, Urine Amount: 0 (Voided prior to procedure) EBL in mLs: 10 Complications: None Condition: Good Free Text/Narrative:: Procedure in Detail: Patient was seen in the preop area and counseled on risks, benefits and alternatives of the procedure and consents were reviewed prior to going back to the OR. She was taken back to OR # and given general anesthesia with endotracheal tube that was placed without difficulty. She was placed in dorsal lithotomy position using Yellofin stirrups. She was prepped and draped in a normal sterile fashion. A weighted speculum was placed in the vagina and the cervix was visualized. The anterior lip of the cervix was grasped with a single toothed tenaculum. The cervix was serially dilated to a 15 English Bola dilator. A 5 mm hysteroscope was inserted into the uterine cavity and advanced to the uterine fundus. The right ostia was visualized and the left ostia was not visualized. The uterine cavity was noted to be overall normal in appearance with thickened endometrial tissue noted in the bilateral sides and posterior joy of the uterus. The hysteroscope was removed and a sharp curette was used to circumferentially curette the entirety of the uterine cavity where good cri was present in all directions. The curettings were sent for pathology. The camera was inserted again and there was no visualization of a endometrial polyp. The procedure was complete at this time and the tenaculum was removed from the cervix and good hemostasis was noted from the tenaculum sites. All instruments were removed from the vagina. All needle and sponge counts were correct x 2. The patient was awoken and taken back to the recovery room in stable condition. The patient will be discharged home when she is ambulating, tolerating PO, pain is well controlled with PO medications and she is voiding normally. She will follow up with Dr. Sanches in the clinic within the next 1-2 weeks. She was given strict precautions to call the medical office or go to the Emergency Department if she is having severe vaginal bleeding of more than 1 pad per hour for three hours, uncontrollable pain, nausea, vomiting, or if she is having a fever greater than 100.4 F.
[2018-11-18] MEDS ORDERED: Acetaminophen/HYDROcodone 325-5 MG Tab PO PRN (09:41)
[2018-11-18] MEDS ORDERED: HYDROmorphone 0.5 MG/0.5 ML Syringe IVPUSH ONE (10:10)
[2018-11-18 12:17] VITALS: BP 124/82
== END 2018-11-18 12:13 | disposition home or self-care (01) ==
LOC: JD.SDS 06:54
PROVIDERS: ATTEND Obstetrics & Gynecology
DX: N92.1 Excessive and frequent menstruation with irregular cycle (principal); R93.89 Abnormal findings on diagnostic imaging of other specified body structures; N94.6 Dysmenorrhea, unspecified; N83.202 Unspecified ovarian cyst, left side; E55.9 Vitamin D deficiency, unspecified; F41.9 Anxiety disorder, unspecified; F32.9 Major depressive disorder, single episode, unspecified; J01.90 Acute sinusitis, unspecified; J30.9 Allergic rhinitis, unspecified; K21.9 Gastro-esophageal reflux disease without esophagitis; K58.9 Irritable bowel syndrome, unspecified; Z91.040 Latex allergy status; Z91.048 Other nonmedicinal substance allergy status; Z79.899 Other long term (current) drug therapy
CPT/HCPCS: 58558; 81001; J0131; J0330; J1100; J1170; J2001; J2250; J2405; J2704; J3010; J7120; 00952

== ENCOUNTER 2018-12-01 07:47 | Emergency (ER) | payer OTHER ==
[2018-12-01 08:03] VITALS: BP 135/83
[2018-12-01] MEDS ORDERED: Acetaminophen 325 MG Tab PO ONE (08:45)
[2018-12-01] MEDS ORDERED: Albuterol/Ipratropium 3.0-0.5 MG/3 ML Neb Soln NEB ONE (08:45)
[2018-12-01] MEDS ORDERED: Ondansetron 4 MG Tab.DIS PO ONE (08:46)
[2018-12-01] MEDS ORDERED: diphenhydrAMINE 50 MG Cap PO ONE (08:46)
--- NOTE | 2018-12-01 08:58 | EDM.PDOC ---
<Jacobo Wray - Last Filed: 12/01/18 09:39> ED HPI GENERAL MEDICAL PROBLEM - General Chief Complaint: Respiratory Problem Stated Complaint: POSSIBLE FLU SYSTEMS Time Seen by Provider: 12/01/18 08:09 Source of Information: Reports: Patient, Family () History Limitations: Reports: No Limitations - History of Present Illness INITIAL COMMENTS - FREE TEXT/NARRATIVE: Pt reports sudden onset of chills, body aches, rhinorrhea, non-productive cough yesterday morning 11/30 and was seen in the walk-in clinic where a rapid influenza test was negative. Today her symptoms have progressed with a temp of 102 F at home, as well as SOB and "sharp" chest pain along the right sternal boarder that is illicit with cough that last up to 1 minute, moderate headache, dizziness, nausea, stiff neck, sore throat, and wheezing. She has taken Tylenol last night around 2330 with minimal relief. Her intake of food or fluids is poor due to nausea. Her has had similar symptoms over the past week but since has resolved. She has received the influenza vaccine this season. Pt is sp endometrial dilation, curettage, and endometrial ablation requiring general anesthesia 11/18/18. She reports no history of asthma but states she has an inhaler at home which she has not used. 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 and an "innocent arrhythmia" during Onset: Sudden Onset Date: 11/30/18 (In the morning) Duration: Getting Worse Location: Reports: Generalized Quality: Reports: Ache (Generalized), Sharp (Chest pain with cough lasting 1 minute) Generalized Pain Score (Numeric/FACES): 6 - Related Data Allergies Allergy/AdvReac Type Severity Reaction Status Date / Time latex Allergy Anaphylactic Verified 12/01/18 08:03 Shock Home Meds: Home Meds Omeprazole 40 mg PO DAILY PRN 10/23/17 [History] Cholecalciferol (Vitamin D3) [Vitamin D3] 1,000 unit PO Q72H 11/02/17 [History] Mirabegron [Myrbetriq] 50 mg PO DAILY 08/12/18 [History] Albuterol Sulfate [Proair Hfa] 1 - 2 puff INH Q4H PRN 11/17/18 [History] Loratadine/Pseudoephedrine [Alavert D-12 Allergy-Sinus] 1 tab PO BID PRN [History] Ondansetron [Zofran ODT] 4 mg PO Q4H PRN #30 tab.dis 11/18/18 [Rx] Azithromycin [Zithromax] 250 mg PO DAILY #6 tab 12/01/18 [Rx] Codeine/Promethazine [Phenergan with Codeine] 5 - 10 ml PO Q6HR PRN #240 ml [Rx] Ondansetron [Zofran ODT] 4 mg PO Q6H PRN #20 tab.dis 12/01/18 [Rx] Past Medical History HEENT History: Reports: Allergic Rhinitis, Impaired Vision, Sinusitis, Other ( See Below) Other HEENT History: right hearing loss, sore throat, recurrent ear infeciton, sinus infections Cardiovascular History: Reports: Blood Clots/VTE/DVT, Other (See Below) Other Cardiovascular History: palpitations at night Respiratory History: Reports: PE, Other (See Below) Other Respiratory History: cough Gastrointestinal History: Reports: GERD, Other (See Below) Other Gastrointestinal History: IBS, delayed gastric emptyinh, gastric ulcer Genitourinary History: Reports: None ELECTION JUDGE History: Reports: Endometrial Ablation (11/18/18 hysteroscopy, endometrial biopsey, curettage, endometrial ablation by Dr. Topher Hurst), , Other (See Below) Other ELECTION JUDGE History: abnormal uterine bleeding, vaginal discomfort Musculoskeletal History: Reports: Gout, Other (See Below) Other Musculoskeletal History: foot tendinitis, left foot pain Neurological History: Reports: Headaches, Chronic Psychiatric History: Reports: Anxiety, Depression Endocrine/Metabolic History: Reports: Vitamin D Deficiency, Other (See Below) Other Endocrine/Metabolic History: hair loss, goiter Hematologic History: Reports: None Immunologic History: Reports: None Oncologic (Cancer) History: Reports: None Dermatologic History: Reports: Other (See Below) Other Dermatologic History: contact dermatitis, plantar wart to foot, folliculitis - Infectious Disease History Infectious Disease History: Reports: Chicken Pox - Past Surgical History Head Surgeries/Procedures: Reports: None HEENT Surgical History: Reports: Adenoidectomy, Myringotomy w Tube(s), Tonsillectomy Cardiovascular Surgical History: Reports: None Respiratory Surgical History: Reports: None GI Surgical History: Reports: Cholecystectomy Female Surgical History: Reports: None Endocrine Surgical History: Reports: None Neurological Surgical History: Reports: None Musculoskeletal Surgical History: Reports: None Oncologic Surgical History: Reports: None Social & Family History - Family History Endocrine/Metabolic: Reports: Diabetes, type II (unspecified) - Tobacco Use Smoking Status *Q: Never Smoker Second Hand Smoke Exposure: No - Caffeine Use Caffeine Use: Reports: None Other Caffeine Use: occassionally - Recreational Drug Use Recreational Drug Use: No ED ROS GENERAL - Review of Systems Review Of Systems: See Below Constitutional: Reports: Fever, Chills, Malaise, Fatigue. Denies: Night Sweats , Weight Loss HEENT: Reports: Rhinitis, Throat Pain. Denies: Ear Discharge, Ear Pain, Eye Pain, Hearing Loss, Throat Swelling Respiratory: Reports: Shortness of Breath, Wheezing, Pleuritic Chest Pain, Cough. Denies: Sputum, Hemoptysis Cardiovascular: Reports: Chest Pain (sharp, only with cough, lasting 1 minute), Lightheadedness, Orthopnea. Denies: Claudication, Edema, Palpitations, Syncope Endocrine: Reports: No Symptoms GI/Abdominal: Reports: Decreased Appetite, Nausea (with food and fluids). Denies: Abdominal Pain, Constipation, Diarrhea, Distension, Vomiting : Reports: No Symptoms Musculoskeletal: Reports: Other (Generalized myalgia) Skin: Reports: No Symptoms. Denies: Jaundice, Dryness, Bruising, Rash Neurological: Reports: Dizziness, Headache. Denies: Confusion, Numbness, Paresthesia, Syncope Psychiatric: Reports: Depression (h/o ) Hematologic/Lymphatic: Reports: No Symptoms Immunologic: Reports: No Symptoms ED EXAM, GENERAL - Physical Exam Exam: See Below Exam Limited By: No Limitations General Appearance: Alert, Mild Distress, Obese Eye Exam: Bilateral Eye: EOMI (Intact), PERRL, Other (Sclera anicteric, No conjuntival injection or swelling.) Ears: Normal External Exam, Normal Canal, Hearing Grossly Normal, Other Ear Exam: Bilateral Ear: Auricle Normal, Canal Normal, TM Dull (Effusion), TM Bulging (mild), Other (No erythema. Umbo visualized bilaterally) Nose: Normal Inspection, Normal Mucosa, No Blood, Clear Rhinorrhea Throat/Mouth: Normal Inspection, Normal Lips, Normal Teeth, Normal Oropharynx, Normal Voice, No Airway Compromise Head: Atraumatic, Normocephalic. No: Sinus Tenderness Neck: Normal Inspection, Supple, Non-Tender, Full Range of Motion. No: Lymphadenopathy (L), Lymphadenopathy (R) Respiratory/Chest: No Respiratory Distress, Crackles (RLL), Wheezing (Moderate Inspiratory LLL and mild late expiratory bilaterally), Prolonged Expiration. No : Pleural Rub Cardiovascular: Normal Peripheral Pulses, No Edema, No Gallop, No JVD, No Murmur , No Rub, Tachycardia Peripheral Pulses: 2+: Radial (L), Radial (R), Dorsalis Pedis (L), Dorsalis Pedis (R) GI/Abdominal: Normal Bowel Sounds, Soft, No Organomegaly, No Distention, No Mass , Tender (Mild in LUQ). No: Splenomegaly (Female) Exam: Deferred Rectal (Female) Exam: Deferred Back Exam: Normal Inspection, Full Range of Motion Extremities: Normal Inspection, Normal Range of Motion, Non-Tender, No Pedal Edema, Normal Capillary Refill Neurological: Alert, Oriented, CN II-XII Intact, Normal Cognition, Normal Reflexes, No Motor/Sensory Deficits Psychiatric: Normal Affect, Normal Mood Skin Exam: Warm, Dry, Intact, Normal Color, No Rash Lymphatic: No Adenopathy Course - Vital Signs Last Recorded V/S: Last Vital Signs Temp 100.5 F 12/01/18 09:12 Pulse 102 H 12/01/18 07:57 Resp 18 12/01/18 07:57 BP 135/83 12/01/18 07:57 Pulse Ox 94 L 12/01/18 08:45 Orthostatic Blood Pressure [ 125/90 Standing] Orthostatic Blood Pressure [ 132/83 Sitting] Orthostatic Blood Pressure [ 132/77 Supine] - Orders/Labs/Meds Orders: Active Orders 24 hr Category Date Time Status Peripheral IV Care [RC] . DIRECTED Care 12/01/18 10:03 Active RT Aerosol Therapy [RC] ASDIRECTED Care 12/01/18 08:45 Active Sodium Chloride 0.9% [Normal Saline] 1,000 ml Med 12/01/18 10:03 Active IV ONETIME Sodium Chloride 0.9% [Saline Flush] Med 12/01/18 10:03 Active 10 ml FLUSH ASDIRECTED PRN Peripheral IV Insertion Adult [OM.PC] Routine Oth 12/01/18 10:03 Ordered Medication Orders Sodium Chloride (Normal Saline) 1,000 mls @ 1,000 mls/hr IV ONETIME ONE Stop: 12/01/18 11:02 Last Admin: 12/01/18 10:15 Dose: 1,000 mls/hr Sodium Chloride (Saline Flush) 10 ml FLUSH ASDIRECTED PRN PRN Reason: Keep Vein Open Last Admin: 12/01/18 10:16 Dose: 10 ml Meds: Medications Generic Name Dose Route Start Last Admin Trade Name Freq PRN Reason Stop Dose Admin Sodium Chloride 1,000 mls @ 1,000 mls/hr 12/01/18 10:03 12/01/18 10:15 Normal Saline IV 12/01/18 11:02 1,000 mls/hr ONETIME ONE Administration Sodium Chloride 10 ml 12/01/18 10:03 12/01/18 10:16 Saline Flush FLUSH 10 ml ASDIRECTED PRN Administration Keep Vein Open Discontinued Medications Generic Name Dose Route Start Last Admin Trade Name Freq PRN Reason Stop Dose Admin Acetaminophen 975 mg 12/01/18 08:45 12/01/18 09:12 Tylenol PO 12/01/18 08:46 975 mg NOW ONE Administration Albuterol/Ipratropium 3 ml 12/01/18 08:45 12/01/18 09:37 Duoneb 3.0-0.5 Mg/3 Ml NEB 12/01/18 08:46 3 ml ONETIME ONE Administration Diphenhydramine HCl 50 mg 12/01/18 08:46 12/01/18 09:12 Benadryl PO 12/01/18 08:47 50 mg ONETIME ONE Administration Hydromorphone HCl 0.5 mg 12/01/18 10:04 12/01/18 10:16 Dilaudid IVPUSH 12/01/18 10:05 0.5 mg ONETIME ONE Administration Ondansetron HCl 4 mg 12/01/18 08:46 12/01/18 09:12 Zofran Odt PO 12/01/18 08:47 4 mg ONETIME ONE Administration - Re-Assessments/Exams Free Text/Narrative Re-Assessment/Exam: 12/01/18 08:50 Pt presents with findings suggestive of influenza with reactive airway features. I am also questioning dehydration and/or pneumonia. We ill obtain rapid influenza test, and 1V CXR. We will provide duoneb x1, tylenol x1 for fever and pain, Zofranx1 for nausea, and Benadryl for headache. Discussed presentation and POC with Dr. Otto. 12/01/18 09:28 Nurse notified my of orthostatics significant for increase of HR >30 BMP from supine to standing without significant changes in systolic/diastolic blood pressure. Will consider increasing oral fluid intake or IV fluids. Will discuss options with DR. Otto 12/01/18 09:39 CXR- Read by Dr. Yury Rodarte MD. "Nothing acute is seen on Portable chest x- ray". Results reviewed by Dr. Otto Departure - Departure Disposition: Home, Self-Care 01 Clinical Impression: Bronchitis - Discharge Information Prescriptions: Codeine/Promethazine [Phenergan with Codeine] 5 - 10 ml PO Q6HR PRN #240 ml PRN Reason: Cough Azithromycin [Zithromax] 250 mg PO DAILY #6 tab Ondansetron [Zofran ODT] 4 mg PO Q6H PRN #20 tab.dis PRN Reason: Nausea\\vomiting Referrals: Jyoti Avila, [employer]ESSOR [Primary Care Provider] - 1 Week Forms: ED Department Discharge Additional Instructions: Take the medication as prescribed. Take tylenol for any fever. Drink plenty of fluids. Please return if you are worse. - My Orders Last 24 Hours: My Active Orders 12/01/18 08:45 RT Aerosol Therapy [RC] ASDIRECTED 12/01/18 10:03 Peripheral IV Care [RC] . DIRECTED Sodium Chloride 0.9% [Normal Saline] 1,000 ml IV ONETIME Sodium Chloride 0.9% [Saline Flush] 10 ml FLUSH ASDIRECTED PRN Peripheral IV Insertion Adult [OM.PC] Routine - Assessment/Plan Last 24 Hours: My Active Orders 12/01/18 08:45 RT Aerosol Therapy [RC] ASDIRECTED 12/01/18 10:03 Peripheral IV Care [RC] . DIRECTED Sodium Chloride 0.9% [Normal Saline] 1,000 ml IV ONETIME Sodium Chloride 0.9% [Saline Flush] 10 ml FLUSH ASDIRECTED PRN Peripheral IV Insertion Adult [OM.PC] Routine <Ministerio Otto - Last Filed: 12/01/18 10:59> Course - Re-Assessments/Exams Free Text/Narrative Re-Assessment/Exam: 12/01/18 10:54 I examined the patient myself and I agree with Benedicto's assessment and plan. Her influenza was negative and her CXR shows no infiltrate. I feel she has bronchitis. I will get her on a Z-ariel, phenergan with codeine and some zofran. Departure - Departure Time of Disposition: 10:55 Condition: Good - Discharge Information *PRESCRIPTION DRUG MONITORING PROGRAM REVIEWED*: Not Applicable *COPY OF PRESCRIPTION DRUG MONITORING REPORT IN PATIENT NISHANT: Not Applicable
--- NOTE | 2018-12-01 09:30 | CR ---
Chest: Portable view of the chest was obtained. Comparison: Prior chest x-ray of 08/12/[address] of 08/12/18. Heart size and mediastinum are within normal limits. Lungs are clear. Bony structures are unremarkable. Incidental surgical clips are seen from prior cholecystectomy. Impression: 1. Nothing acute is seen on portable chest x-ray. Diagnostic code #2
[2018-12-01] MEDS ORDERED: Sodium Chloride 0.9% 10 ML Syringe FLUSH PRN (10:03)
[2018-12-01] MEDS ORDERED: Sodium Chloride 0.9% 1,000 ML IV ONE (10:03)
[2018-12-01] MEDS ORDERED: HYDROmorphone 1 MG/ML Syringe IVPUSH ONE (10:04)
== END 2018-12-01 11:41 | disposition home or self-care (01) ==
LOC: JD.ED 07:47
DX: J40 Bronchitis, not specified as acute or chronic (principal); K21.9 Gastro-esophageal reflux disease without esophagitis; F41.9 Anxiety disorder, unspecified; F32.9 Major depressive disorder, single episode, unspecified; Z79.899 Other long term (current) drug therapy; Z91.040 Latex allergy status
CPT/HCPCS: 71045; 87804; 94640; 96361; 96374; 99284; A9270; J1170; J7040; J7620-GY

== ENCOUNTER 2019-06-30 14:57 | Emergency (ER) | payer OTHER ==
[2019-06-30] MEDS ORDERED: Metoclopramide 10 MG/2 ML SDV IVPUSH ONE (15:57)
[2019-06-30] MEDS ORDERED: diphenhydrAMINE 50 MG/ML SDV IVPUSH ONE (15:58)
[2019-06-30] MEDS ORDERED: HYDROmorphone 0.5 MG/0.5 ML Syringe IVPUSH ONE (15:58)
[2019-06-30] MEDS ORDERED: Sodium Chloride 0.9% 1,000 ML IV SCH (16:00)
[2019-06-30] MEDS ORDERED: Ketorolac 30 MG/ML SDV IVPUSH SCH (16:00)
--- NOTE | 2019-06-30 16:03 | EDM.PDOC ---
ED HPI GENERAL MEDICAL PROBLEM - General Chief Complaint: Headache Stated Complaint: HEADACHE/DIZZINESS Time Seen by Provider: 06/30/19 15:42 Source of Information: Reports: Patient History Limitations: Reports: No Limitations - History of Present Illness INITIAL COMMENTS - FREE TEXT/NARRATIVE: 39-year-old female presents to the ED with a generalized headache but primarily occipital frontal pressure discomfort bilaterally. Associated mild nausea. Patient has been struggling with intermittent problems with severe vertigo and tinnitus in her right ear off and on since May. She usually has milder headaches controlled with Motrin or Excedrin but no relief with these medications today. One week ago June 23 she developed sudden loss of hearing in her right ear. Her ear nose and throat surgeon has placed her on a tapering dose of prednisone starting with 60 mg daily and weaning her every 3 days by 10 mg. Currently she is on 40 mg daily and is due to go to 30 mg tomorrow. She has some loose diarrhea stools that have developed over the last few days as well. This is second time she's been placed on a course of prednisone since onset of vertigo symptoms and tinnitus in May of this year. He is being followed by ear nose and throat surgeon in [place]. Recently diagnosed with suspect Mnire's disease. However MRI of her brain has been completed sometime between May and now and she was sent apparently identified to have multiple white lesions in the frontal lobes which would be suggestive or worrisome for multiple sclerosis. She is now scheduled for neurology consult. Onset: Today Onset Date: 05/23/19 (Initial event was in May of this year. Sudden recurrence of severe symptoms with loss of hearing and increased vertigo June 23.) Duration: Week(s):, Waxing/Waning Location: Reports: Face (Right ear high-pitched tinnitus and loss of hearing) Quality: Reports: Other (Headache is described as constant deep throbbing aching pain. [place]) Severity: Moderate (in both temporal scalp sides of her head. genitalia) Improves with: Reports: None Worsens with: Reports: Movement (Certain movements) Context: Reports: Other. 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: Other (see below) (Excedrin Migraine.) Headache Pain Score (Numeric/FACES): 5 - Related Data Allergies Allergy/AdvReac Type Severity Reaction Status Date / Time latex Allergy Anaphylactic Verified 06/30/19 15:25 Shock Home Meds: Home Meds Omeprazole 40 mg PO DAILY PRN 10/23/17 [History] Cholecalciferol (Vitamin D3) [Vitamin D3] 1,000 unit PO Q72H 11/02/17 [History] Mirabegron [Myrbetriq] 50 mg PO DAILY 08/12/18 [History] Albuterol Sulfate [Proair Hfa] 1 - 2 puff INH Q4H PRN 11/17/18 [History] Loratadine/Pseudoephedrine [Alavert D-12 Allergy-Sinus] 1 tab PO BID PRN [History] Ondansetron [Zofran ODT] 4 mg PO Q4H PRN #30 tab.dis 11/18/18 [Rx] Azithromycin [Zithromax] 250 mg PO DAILY #6 tab 12/01/18 [Rx] Codeine/Promethazine [Phenergan with Codeine] 5 - 10 ml PO Q6HR PRN #240 ml [Rx] Ondansetron [Zofran ODT] 4 mg PO Q6H PRN #20 tab.dis 12/01/18 [Rx] Past Medical History HEENT History: Reports: Allergic Rhinitis, Impaired Vision, Sinusitis, Other ( See Below) Other HEENT History: right hearing loss, sore throat, recurrent ear infeciton, sinus infections Cardiovascular History: Reports: Blood Clots/VTE/DVT, Other (See Below) Other Cardiovascular History: palpitations at night Respiratory History: Reports: PE, Other (See Below) Other Respiratory History: cough Gastrointestinal History: Reports: GERD, Other (See Below) Other Gastrointestinal History: IBS, delayed gastric emptyinh, gastric ulcer Genitourinary History: Reports: None COUNCIL MEMBER History: Reports: Endometrial Ablation, , Other (See Below) Other COUNCIL MEMBER History: abnormal uterine bleeding, vaginal discomfort Musculoskeletal History: Reports: Gout, Other (See Below) Other Musculoskeletal History: foot tendinitis, left foot pain Neurological History: Reports: Headaches, Chronic Psychiatric History: Reports: Anxiety, Depression Endocrine/Metabolic History: Reports: Vitamin D Deficiency, Other (See Below) Other Endocrine/Metabolic History: hair loss, goiter Hematologic History: Reports: None Immunologic History: Reports: None Oncologic (Cancer) History: Reports: None Dermatologic History: Reports: Other (See Below) Other Dermatologic History: contact dermatitis, plantar wart to foot, folliculitis - Infectious Disease History Infectious Disease History: Reports: Chicken Pox - Past Surgical History Head Surgeries/Procedures: Reports: None HEENT Surgical History: Reports: Adenoidectomy, Myringotomy w Tube(s), Tonsillectomy Cardiovascular Surgical History: Reports: None Respiratory Surgical History: Reports: None GI Surgical History: Reports: Cholecystectomy Female Surgical History: Reports: None Endocrine Surgical History: Reports: None Neurological Surgical History: Reports: None Musculoskeletal Surgical History: Reports: None Oncologic Surgical History: Reports: None Social & Family History - Family History Endocrine/Metabolic: Reports: Diabetes, type II - Tobacco Use Smoking Status *Q: Never Smoker - Caffeine Use Caffeine Use: Reports: Coffee Other Caffeine Use: occassionally - Recreational Drug Use Recreational Drug Use: No - Living Situation & Occupation Living situation: Reports: Occupation: Employed ED ROS GENERAL - Review of Systems Review Of Systems: See Below Constitutional: Reports: Malaise, Fatigue, Decreased Appetite. Denies: Fever, Chills HEENT: Reports: Vertigo ( vertigo. been a recurrent problem since May 23 when it occurred suddenly. ), Other (S right ear associated with tinnitus and) Respiratory: Reports: No Symptoms Cardiovascular: Reports: No Symptoms. Denies: Blood Pressure Problem Endocrine: Reports: Fatigue GI/Abdominal: Reports: Diarrhea (3-4 loose stools today to yesterday.) : Reports: No Symptoms Musculoskeletal: Reports: No Symptoms Skin: Reports: No Symptoms Neurological: Reports: Dizziness, Headache, Other (Vertigo.). Denies: Numbness , Paresthesia, Tingling Psychiatric: Reports: Depression (She is on Lexapro and) Hematologic/Lymphatic: Reports: No Symptoms ( trazodone to help sleep.) Immunologic: Reports: No Symptoms - Physical Exam Exam: See Below Exam Limited By: No Limitations General Appearance: Alert, WD/WN, Mild Distress, Other (/BP is 136/80 with pulse ox of 98%.) Eye Exam: Bilateral Eye: Normal Inspection (No nystagmus.) Ears: Other (Right tympanic membrane is mildly retracted suggestive of a serous otitis media.) Nose: Nasal Swelling (He does have swelling of the turbinates bilaterally worse on the right compared to the left. Restraint due to fogging of my arthroscope I could not tell if she had any significant) Throat/Mouth: Normal Inspection, Normal Lips, Normal Oropharynx ( nasal polyps forming.), Other Head Exam: Atraumatic, Normocephalic (Uvula is in the midline.) Neck: Normal Inspection, Supple, Non-Tender, Full Range of Motion. No: Lymphadenopathy (L), Lymphadenopathy (R) Respiratory/Chest: No Respiratory Distress, Lungs Clear, Normal Breath Sounds, No Accessory Muscle Use, Chest Non-Tender Cardiovascular: Normal Peripheral Pulses, Regular Rate, Rhythm, No Edema, No Murmur, No Rub GI/Abdominal: Normal Bowel Sounds, Soft, Non-Tender, No Organomegaly, No Abnormal Bruit Neuro Exam (Abbreviated): Alert, Oriented, CN II-XII Intact, Normal Cognition, No Motor/Sensory Deficits. No: Normal Gait (Mildly ataxic.) Extremities: Normal Inspection, Normal Range of Motion, Non-Tender, No Pedal Edema Psychiatric: Normal Affect, Normal Mood Skin Exam: Warm, Dry, Intact, Normal Color, No Rash Course - Vital Signs Last Recorded V/S: Last Vital Signs Temp 36.1 C 06/30/19 15:21 Pulse 69 06/30/19 19:43 Resp 18 06/30/19 15:21 BP 101/70 06/30/19 19:43 Pulse Ox 100 06/30/19 19:43 - Orders/Labs/Meds Labs: Laboratory Tests 06/30/19 06/30/19 Range/Units 16:24 16:24 WBC 15.02 H (3.98-10.04) K/mm3 RBC 4.91 (3.98-5.22) M/mm3 Hgb 13.3 (11.2-15.7) gm/dl Hct 40.7 (34.1-44.9) % MCV 82.9 (79.4-94.8) fl MCH 27.1 (25.6-32.2) pg MCHC 32.7 (32.2-35.5) g/dl RDW Std Deviation 47.2 H (36.4-46.3) fL Plt Count 298 (182-369) K/mm3 MPV 11.2 (9.4-12.3) fl Neut % (Auto) 81.5 H (34.0-71.1) % Lymph % (Auto) 12.1 L (19.3-51.7) % Burke % (Auto) 5.1 (4.7-12.5) % Eos % (Auto) 0 L (0.7-5.8) Baso % (Auto) 0.3 (0.1-1.2) % Neut # (Auto) 12.25 H (1.56-6.13) K/mm3 Lymph # (Auto) 1.81 (1.18-3.74) K/mm3 Burke # (Auto) 0.77 H (0.24-0.36) K/mm3 Eos # (Auto) 0.00 L (0.04-0.36) K/mm3 Baso # (Auto) 0.04 (0.01-0.08) K/mm3 Manual Slide Review Normal smear Sodium 138 (136-145) mEq/L Potassium 4.2 (3.5-5.1) mEq/L Chloride 105 (98-107) mEq/L Carbon Dioxide 24 (21-32) mEq/L Anion Gap 13.2 (5-15) BUN 11 (7-18) mg/dL Creatinine 0.7 (0.55-1.02) mg/dL Est Cr Clr Drug Dosing 118.99 mL/min Estimated GFR (MDRD) > 60 (>60) mL/min BUN/Creatinine Ratio 15.7 (14-18) Glucose 117 H (74-106) mg/dL Calcium 9.2 (8.5-10.1) mg/dL Magnesium 2.2 (1.8-2.4) mg/dl Total Bilirubin 0.3 (0.2-1.0) mg/dL AST 19 (15-37) U/L ALT 62 H (14-59) U/L Alkaline Phosphatase 58 (46-116) U/L Total Protein 6.9 (6.4-8.2) g/dl Albumin 3.3 L (3.4-5.0) g/dl Globulin 3.6 gm/dL Albumin/Globulin Ratio 0.9 L (1-2) Meds: Medications Discontinued Medications Generic Name Dose Route Start Last Admin Trade Name Ruthy PRN Reason Stop Dose Admin Diphenhydramine HCl 12.5 mg 06/30/19 15:58 06/30/19 16:59 Benadryl IVPUSH 06/30/19 15:59 12.5 mg ONETIME ONE Administration Hydromorphone HCl 0.5 mg 06/30/19 15:58 06/30/19 17:07 Dilaudid IVPUSH 06/30/19 15:59 0.5 mg ONETIME ONE Administration Sodium Chloride 1,000 mls @ 250 mls/hr 06/30/19 16:00 06/30/19 16:39 Normal Saline IV 250 mls/hr ASDIRECTED HALI Administration Ketorolac Tromethamine 30 mg 06/30/19 16:00 06/30/19 17:04 Toradol IVPUSH 30 mg ONETIME HALI Administration Lorazepam 0.5 mg 06/30/19 18:09 06/30/19 18:23 Ativan IVPUSH 06/30/19 18:10 0.5 mg ONETIME ONE Administration Metoclopramide HCl 7.5 mg 06/30/19 15:57 06/30/19 16:48 Reglan IVPUSH 06/30/19 15:58 7.5 mg ONETIME ONE Administration - Radiology Interpretation Free Text/Narrative:: 39-year-old female presents the ED primarily because of a severe headache that just won't go away with Excedrin Migraine and Motrin today. Patient has been plagued by recurrent bouts of tinnitus and vertigo involving her right ear and last Wednesday complete loss of hearing in her right ear. It is felt that she is developing Mnire's disease. The right ear is infected at this time. She is currently on a weaning dose of prednisone starting with 60 mg last Wednesday by her ear nose and throat physician and weaning by 1 tablet every 3 days. Tomorrow she is to start 30 mg daily. He feels puffy like she is retaining fluid. Blood pressure is okay at present. She states she still significantly vertiginous with certain movements. Mild associated nausea. Neuro exam is completely normal. Right eardrum is pierced to be slightly retracted compatible with an MANDO. Plan I'm going to use give her IV fluids D5 normal saline at 250 mils per hour. I will give her Dilaudid 0.5 mg IV with Toradol 30 mg IV and Reglan 7.5 mg IV and Benadryl 12.5 mg IV due to the fact that she is on Lexapro and trazodone to prevent any dystonic reaction. - Re-Assessments/Exams Free Text/Narrative Re-Assessment/Exam: 06/30/19 17:33 Labs reveal an elevated white count at 15.02 likely from steroid effect. The differential shows 82% neutrophils. This is on auto differential. Hemoglobin 13.3 with hematocrit of 40.7. Platelet count 298,000. Sodium 138 with potassium of 4.2. Chloride is 15 with a bicarbonate of 24. And a gap is 13.2. BUN is 11 with a creatinine of 0.7. GFR remains greater than 60. Glucose 117. Calcium 9.2. Magnesium 2.2. Liver function reveals a mildly elevated ALT at 62. Alk phosphatase is 58. Total protein 6.9 with an albumin fraction slightly low at 3.3. 06/30/19 18:09 Still has a left frontal headache. She became pretty nauseated and upset stomach from the Dilaudid. I am going to give her a small dose of Ativan 0.5 mg IV position help her vertigo as well. 06/30/19 19:40: She is feeling better. We had her up walking in the [place] and she did fairly well even with a reduction of vertigo symptoms. She will therefore be discharged to home. Continue current prednisone dosage and medications. She is pretty fatigued from the medications and will be going home to bed. Departure - Departure Time of Disposition: 19:29 Disposition: Home, Self-Care 01 Condition: Fair Clinical Impression: Tension-type headache, Vertigo, Tinnitus of right ear - Discharge Information *PRESCRIPTION DRUG MONITORING PROGRAM REVIEWED*: Not Applicable *COPY OF PRESCRIPTION DRUG MONITORING REPORT IN PATIENT NISHANT: Not Applicable Instructions: Vertigo, [id number], Tension Headache, Adult, [id number] Referrals: Jyoti Avila, BARREL RIFLER HOOK [Primary Care Provider] - Forms: ED Department Discharge Additional Instructions: Evaluation the emergency room today in regards to worsening headache as the day has gone on. You have been receiving investigations and treatment for recurrent tinnitus and vertigo in your right ear since mid May of this last year. You' re being followed closely by ENT surgeon. Scheduled to see a neurologist in the near future. Unclear what caused the headache today. Proved to be completely normal. Is not a normal side effect of steroids but can be from elevation of fluids. There was no metabolic abdomen maladies appreciated in your lab work and your blood pressure remained in the normal range in the emergency department. You're treated with a combination of medications to help with the vertigo symptoms as well as the headache. You received Toradol 30 mg IV with Reglan 7.5 mg IV and Benadryl 12.5 mg IV to prevent any side effects between the Reglan and your antidepressant medications. You also received Dilaudid 0.5 mg IV initially. An hour later you received lorazepam 0.5 mg IV and did seem to help completely resolve the headache and improve some of the vertigo symptoms as well. I would suggest taking Claritin-D 12 hour release once daily every morning for the next 6-7 days to see if it will help alleviate some of the middle ea eustachian tube dysfunction identified with eardrum retraction on the right side today.
[2019-06-30] MEDS ORDERED: LORazepam 2 MG/ML SDV IVPUSH ONE (18:09)
[2019-06-30 19:44] VITALS: BP 101/70; PULSE 69
== END 2019-06-30 19:45 | disposition home or self-care (01) ==
LOC: JD.ED 14:57
DX: G44.209 Tension-type headache, unspecified, not intractable (principal); H93.11 Tinnitus, right ear; R42 Dizziness and giddiness; K21.9 Gastro-esophageal reflux disease without esophagitis; Z86.718 Personal history of other venous thrombosis and embolism; Z91.040 Latex allergy status; Z79.899 Other long term (current) drug therapy
CPT/HCPCS: 36415; 80053; 83735; 85025; 96361; 96374; 96375; 99284; J1170; J1200; J1885; J2060; J2765; J7040

== ENCOUNTER 2019-12-01 15:51 | Emergency (ER) | payer OTHER ==
[2019-12-01 16:22] VITALS: BP 117/71; PULSE 64
[2019-12-01] MEDS ORDERED: Ketorolac 30 MG/ML SDV IVPUSH SCH (16:30)
[2019-12-01] MEDS ORDERED: Sodium Chloride 0.9% 1,000 ML IV SCH (16:30)
[2019-12-01] MEDS ORDERED: Metoclopramide 10 MG/2 ML SDV IVPUSH ONE (16:31)
[2019-12-01] MEDS ORDERED: HYDROmorphone 0.5 MG/0.5 ML Syringe IVPUSH ONE (16:31)
[2019-12-01] MEDS ORDERED: diphenhydrAMINE 50 MG/ML SDV IVPUSH ONE ×2 (16:31→17:32)
--- NOTE | 2019-12-01 16:34 | EDM.PDOC ---
ED HPI GENERAL MEDICAL PROBLEM - General Chief Complaint: Headache Stated Complaint: HEADACHE Time Seen by Provider: 12/01/19 16:20 Source of Information: Reports: Patient History Limitations: Reports: No Limitations - History of Present Illness INITIAL COMMENTS - FREE TEXT/NARRATIVE: 39-year-old female presents to the ED with a constant migraine equivalent headache for the last 2 weeks. Last weekend she took her triptan medication twice on Wednesday and once on Wednesday and then was advised by neurology services to get not use it any further. It was not very successful in relieving the headache at any rate. All week she has been taking Excedrin Migraine with some minimal relief of the headache. Of note patient had an MRI done back in June last year which revealed numerous white spots in her brain which were worrisome for multiple sclerosis. However it proved that these are vascular injury secondary to recurrent chronic migraines. About a month ago she suddenly lost hearing once again in her left ear and had associated vertigo symptoms. She was once again started on high-dose steroids and is currently weaning off. She is currently on 5 mg a day. Hearing is not quite returned to normal and she is still a little bit vertiginous with certain movements i.e. loses her balance. Ringing humming buzzing in her ear or tinnitus is also improved but again not gone. She is photophobic and sensitive to sounds. She presented to the ED in June 30, 2019 with exactly the same complaints Onset Date: 11/19/19 Duration: Day(s):, Constant, Waxing/Waning Location: Reports: Head (Some days are worse than others but the headache never goes away. Generalized headache) Quality: Reports: Ache, Throbbing, Other (She did sensitivity to light and sound.) Severity: Moderate Improves with: Reports: Other (Still in a dark room.) Worsens with: Reports: Other Context: Denies: Activity, Exercise, Lifting, Sick Contact, Trauma, Other Associated Symptoms: Reports: Headaches, Other (Has been drinking a lot of water.). Denies: No Other Symptoms, Confusion, Chest Pain, Cough, cough w sputum, Diaphoresis, Fever/Chills, Loss of Appetite, Malaise, Nausea/Vomiting, Rash, Seizure, Shortness of Breath, Syncope Treatments [employer]: Reports: Other (see below) (Sed rate migraine) Headache Pain Score (Numeric/FACES): 4 - Related Data Allergies Allergy/AdvReac Type Severity Reaction Status Date / Time latex Allergy Anaphylactic Verified 12/01/19 16:23 Shock Home Meds: Home Meds Loratadine/Pseudoephedrine [Alavert D-12 Allergy-Sinus] 1 tab PO BID PRN [History] Ondansetron [Zofran ODT] 4 mg PO Q6H PRN #20 tab.dis 12/01/18 [Rx] DULoxetine [Cymbalta] 1 cap PO DAILY 12/01/19 [History] Rizatriptan Benzoate [Rizatriptan] 10 mg PO BID PRN 12/01/19 [History] predniSONE [Prednisone] 5 mg PO DAILY 12/01/19 [History] Past Medical History HEENT History: Reports: Allergic Rhinitis, Impaired Vision, Sinusitis, Other ( See Below) Other HEENT History: right hearing loss, sore throat, recurrent ear infeciton, sinus infections Cardiovascular History: Reports: Blood Clots/VTE/DVT, Other (See Below) Other Cardiovascular History: palpitations at night Respiratory History: Reports: PE, Other (See Below) Other Respiratory History: cough Gastrointestinal History: Reports: GERD, Other (See Below) Other Gastrointestinal History: IBS, delayed gastric emptyinh, gastric ulcer Genitourinary History: Reports: None DIRECTOR OF EVENTS History: Reports: Endometrial Ablation, , Other (See Below) Other DIRECTOR OF EVENTS History: abnormal uterine bleeding, vaginal discomfort Musculoskeletal History: Reports: Gout, Other (See Below) Other Musculoskeletal History: foot tendinitis, left foot pain Neurological History: Reports: Headaches, Chronic Psychiatric History: Reports: Anxiety, Depression Endocrine/Metabolic History: Reports: Vitamin D Deficiency, Other (See Below) Other Endocrine/Metabolic History: hair loss, goiter Hematologic History: Reports: None Immunologic History: Reports: None Oncologic (Cancer) History: Reports: None Dermatologic History: Reports: Other (See Below) Other Dermatologic History: contact dermatitis, plantar wart to foot, folliculitis - Infectious Disease History Infectious Disease History: Reports: Chicken Pox - Past Surgical History Head Surgeries/Procedures: Reports: None HEENT Surgical History: Reports: Adenoidectomy, Myringotomy w Tube(s), Tonsillectomy Cardiovascular Surgical History: Reports: None Respiratory Surgical History: Reports: None GI Surgical History: Reports: Cholecystectomy Female Surgical History: Reports: None Endocrine Surgical History: Reports: None Neurological Surgical History: Reports: None Musculoskeletal Surgical History: Reports: None Oncologic Surgical History: Reports: None Social & Family History - Family History Endocrine/Metabolic: Reports: Diabetes, type II - Caffeine Use Caffeine Use: Reports: Coffee Other Caffeine Use: occassionally - Living Situation & Occupation Living situation: Reports: Occupation: Employed ED ROS GENERAL - Review of Systems Review Of Systems: See Below Constitutional: Reports: Malaise, Weakness, Fatigue, Decreased Appetite. Denies : Fever, Chills HEENT: Reports: Hearing Loss (Slowly regaining the hearing in her left ear.), Vertigo, Other Cardiovascular: Reports: No Symptoms Endocrine: Reports: No Symptoms GI/Abdominal: Reports: No Symptoms : Reports: No Symptoms Musculoskeletal: Reports: No Symptoms Skin: Reports: No Symptoms Neurological: Reports: Headache Psychiatric: Reports: No Symptoms Hematologic/Lymphatic: Reports: No Symptoms Immunologic: Reports: No Symptoms - Physical Exam Exam: See Below Exam Limited By: No Limitations General Appearance: Alert, WD/WN, No Apparent Distress, Other (Temperature is 36.6. Heart rate is 64 in sinus respiratory is 18 BP 117/71. Pulse ox 99% on room air) Eye Exam: Bilateral Eye: Normal Inspection, PERRL (No nystagmus) Ears: Normal TMs Throat/Mouth: Normal Inspection, Normal Lips, Normal Oropharynx, Other (Uvula is in the midline) Head Exam: Atraumatic, Normocephalic Neck: Normal Inspection, Supple, Full Range of Motion, Tender Lateral Neuro Exam (Abbreviated): Alert, Oriented, CN II-XII Intact, Normal Cognition, Normal Gait, No Motor/Sensory Deficits, Other (Normal rapid alternating movements normal [id number] exam.) Psychiatric: Normal Affect, Normal Mood Skin Exam: Warm, Dry, Intact, Normal Color, No Rash Course - Vital Signs Last Recorded V/S: Last Vital Signs Temp 36.6 C 12/01/19 16:15 Pulse 64 12/01/19 16:15 Resp 18 12/01/19 16:15 BP 117/71 12/01/19 16:15 Pulse Ox 99 12/01/19 16:15 - Orders/Labs/Meds Orders: Active Orders 24 hr Category Date Time Status Ketorolac [Toradol] Med 12/01/19 16:30 Active 30 mg IVPUSH ONETIME Sodium Chloride 0.9% [Normal Saline] 1,000 ml Med 12/01/19 16:30 Active IV ASDIRECTED Medication Orders Sodium Chloride (Normal Saline) 1,000 mls @ 125 mls/hr IV ASDIRECTED HALI Last Admin: 12/01/19 16:54 Dose: 125 mls/hr Ketorolac Tromethamine (Toradol) 30 mg IVPUSH ONETIME HALI Last Admin: 12/01/19 16:55 Dose: 30 mg Labs: Laboratory Tests 12/01/19 Range/Units 16:51 Sodium 141 (136-145) mEq/L Potassium 3.7 (3.5-5.1) mEq/L Chloride 104 (98-107) mEq/L Carbon Dioxide 27 (21-32) mEq/L Anion Gap 13.7 (5-15) BUN 12 (7-18) mg/dL Creatinine 0.7 (0.55-1.02) mg/dL Est Cr Clr Drug Dosing 118.99 mL/min Estimated GFR (MDRD) > 60 (>60) mL/min BUN/Creatinine Ratio 17.1 (14-18) Glucose 86 (74-106) mg/dL Calcium 9.4 (8.5-10.1) mg/dL Magnesium 2.0 (1.8-2.4) mg/dl Total Bilirubin 0.5 (0.2-1.0) mg/dL AST 21 (15-37) U/L ALT 67 H (14-59) U/L Alkaline Phosphatase 64 (46-116) U/L Total Protein 7.2 (6.4-8.2) g/dl Albumin 3.6 (3.4-5.0) g/dl Globulin 3.6 gm/dL Albumin/Globulin Ratio 1.0 (1-2) Meds: Medications Generic Name Dose Route Start Last Admin Trade Name Freq PRN Reason Stop Dose Admin Sodium Chloride 1,000 mls @ 125 mls/hr 12/01/19 16:30 12/01/19 16:54 Normal Saline IV 125 mls/hr ASDIRECTED HALI Administration Ketorolac Tromethamine 30 mg 12/01/19 16:30 12/01/19 16:55 Toradol IVPUSH 30 mg ONETIME HALI Administration Discontinued Medications Generic Name Dose Route Start Last Admin Trade Name Ruthy PRN Reason Stop Dose Admin Diphenhydramine HCl 25 mg 12/01/19 16:31 12/01/19 16:54 Benadryl IVPUSH 12/01/19 16:32 25 mg ONETIME ONE Administration Diphenhydramine HCl 12.5 mg 12/01/19 17:32 Benadryl IVPUSH 12/01/19 17:33 ONETIME ONE Hydromorphone HCl 0.5 mg 12/01/19 16:31 Dilaudid IVPUSH 12/01/19 16:32 ONETIME ONE Metoclopramide HCl 10 mg 12/01/19 16:31 12/01/19 16:54 Reglan IVPUSH 12/01/19 16:32 10 mg ONETIME ONE Administration - Radiology Interpretation Free Text/Narrative:: 39-year-old female presents to the ED with a constant headache for the last 2 weeks. Associated loss of hearing in her left ear with associated mild vertigo. Improved after a course of high-dose steroids and weaning protocol. Blood pressure is satisfactory. She came to the ED in the hopes of receiving medication to control her headache. Plan Toradol 30 mg IV with Reglan 10 mg IV and Benadryl 25 mg IV with Dilaudid 0.5 mg IV. - Re-Assessments/Exams Free Text/Narrative Re-Assessment/Exam: 12/01/19 17:33 Chemistry is back reveals a normal sodium at 141 and a potassium of 3.7. Chloride is 104 with a bicarb of 27. Anion gap is 13.7. BUN was 12 GFR remains greater than 60. Glucose was 86 calcium is 9.4. Magnesium was 2.0. Liver function normal other than slightly elevated ALT at 67. She should be probably checked for hepatitis C at some point in the future alk phosphatase is 64. Total protein 7.2 with an albumin fraction of 3.6. There does not appear to be any adverse effects metabolically from taking high- dose steroids . On reevaluation the patient's headache pain is dissipated down to 1 or 2 out of 10. She is feeling still quite restless i.e. mild akathisia most likely from the Reglan. I did increase the dose from 7.5 last time to 10 mg this time and she did receive Benadryl 25 mg but in spite of this developed akathisia. I will repeat Benadryl 12.5 mg IV now for relief of the symptoms. She then feels she will be able to go home and sleep/rest. Departure - Departure Time of Disposition: 17:56 Disposition: Home, Self-Care 01 Condition: Fair Clinical Impression: Migraine Qualifiers: Migraine type: without aura Status migrainosus presence: without status migrainosus Intractability: not intractable Qualified Code(s): G43.009 - Migraine without aura, not intractable, without status migrainosus - Discharge Information *PRESCRIPTION DRUG MONITORING PROGRAM REVIEWED*: Not Applicable *COPY OF PRESCRIPTION DRUG MONITORING REPORT IN PATIENT NISHANT: Not Applicable Instructions: Recurrent Migraine Headache Referrals: Jyoti Avila [facility] PULVER[facility]ER [Primary Care Provider] - Forms: ED Department Discharge Additional Instructions: Evaluation in the emergency room today in regards to persistent headache for the better part of 2 weeks which has been waxing and waning in intensity. Today was a bit worse with increased photosensitivity and increased sensitivity to sounds. You were advised by your neurologist not to use any further triptan' s which were not all that effective at any rate last weekend. You have been taking Excedrin Migraine most of the week which takes the edge off the headache but will not take it away. Today received intravenous fluids and medication Reglan 10 mg which seemed to cause some restlessness and uneasy feelings which we call akathisia. Please let us know this on next visit so that we will reduce the dosage of Reglan or Compazine if they are used for headache relief. They work well as they work on the migraine trigger center in our brain. Also received medications Toradol 30 mg and Benadryl 37.5 mg in total. Also received Dilaudid 0.5 mg IV for headache relief. Does not home to sleep/rest for the next 4 to 6 hours to see if he can break the headache cycle. Sepsis Event Note - Evaluation Sepsis Screening Result: No Definite Risk - Focused Exam Vital Signs: Vital Signs Temp Pulse Resp BP Pulse Ox 12/01/19 16:15 36.6 C 64 18 117/71 99 Date Exam was Performed: 12/01/19 Time Exam was Performed: 17:55 - My Orders Last 24 Hours: My Active Orders 12/01/19 16:30 Ketorolac [Toradol] 30 mg IVPUSH ONETIME Sodium Chloride 0.9% [Normal Saline] 1,000 ml IV ASDIRECTED - Assessment/Plan Last 24 Hours: My Active Orders 12/01/19 16:30 Ketorolac [Toradol] 30 mg IVPUSH ONETIME Sodium Chloride 0.9% [Normal Saline] 1,000 ml IV ASDIRECTED
== END 2019-12-01 18:29 | disposition home or self-care (01) ==
LOC: JD.ED 15:51
DX: G43.009 Migraine without aura, not intractable, without status migrainosus (principal); F41.9 Anxiety disorder, unspecified; F32.9 Major depressive disorder, single episode, unspecified; Z91.040 Latex allergy status; Z79.899 Other long term (current) drug therapy
CPT/HCPCS: 36415; 80053; 83735; 96361; 96374; 96375; 96376; 99284; J1200; J1885; J2765; J7030; 99283

== ENCOUNTER 2020-08-05 07:20 | Emergency (ER) | payer OTHER ==
[2020-08-05 07:35] VITALS: PULSE 81
[2020-08-05] MEDS ORDERED: Sodium Chloride 0.9% 10 ML Syringe FLUSH PRN (07:51)
--- NOTE | 2020-08-05 08:09 | EDM.PDOC ---
ED HPI GENERAL MEDICAL PROBLEM - General Chief Complaint: Respiratory Problem Stated Complaint: SOB HX OF BLOOD CLOTS Time Seen by Provider: 08/05/20 07:35 Source of Information: Reports: Patient History Limitations: Reports: No Limitations - History of Present Illness INITIAL COMMENTS - FREE TEXT/NARRATIVE: The patient presents for shortness of breath. This started last week and it has gotten worse. She noticed more shortness of breath with exertion like when getting ready for work she is short of breath. She has a history of both DVT and PE. She also says he left calf has been tight and having some pain. She has no fever, chills, cough, congestion, runny nose, and chest pain. She has no abdominal pain, nausea or vomiting. She has no diarrhea. She has lost over 100 pounds over the past year. Onset: Gradual Duration: Week(s): Severity: Moderate Improves with: Reports: Rest Worsens with: Reports: Movement Associated Symptoms: Reports: Shortness of Breath. Denies: Chest Pain, Cough, Fever/Chills, Headaches, Nausea/Vomiting Left Leg Pain Score (Numeric/FACES): 2 - Related Data Allergies Allergy/AdvReac Type Severity Reaction Status Date / Time Estrogens Allergy unknown Verified 08/05/20 07:32 latex Allergy Anaphylactic Verified 08/05/20 07:32 Shock Home Meds: Home Meds Loratadine/Pseudoephedrine [Alavert D-12 Allergy-Sinus] 1 tab PO BID PRN 11/17/18 [History] Ondansetron [Zofran ODT] 4 mg PO Q6H PRN #20 tab.dis 12/01/18 [Rx] DULoxetine [Cymbalta] 1 cap PO DAILY 12/01/19 [History] Rizatriptan Benzoate [Rizatriptan] 10 mg PO BID PRN 12/01/19 [History] predniSONE [Prednisone] 5 mg PO DAILY 12/01/19 [History] Past Medical History HEENT History: Reports: Allergic Rhinitis, Impaired Vision, Sinusitis, Other (See Below) Other HEENT History: right hearing loss, sore throat, recurrent ear infeciton, sinus infections Cardiovascular History: Reports: Blood Clots/VTE/DVT, Other (See Below) Other Cardiovascular History: palpitations at night Respiratory History: Reports: PE, Other (See Below) Other Respiratory History: cough Gastrointestinal History: Reports: GERD, Other (See Below) Other Gastrointestinal History: IBS, delayed gastric emptyinh, gastric ulcer Genitourinary History: Reports: None [employer] History: Reports: Endometrial Ablation, , Other (See Below) Other [employer] History: abnormal uterine bleeding, vaginal discomfort Musculoskeletal History: Reports: Fracture, Gout, Other (See Below) Other Musculoskeletal History: foot tendinitis, left foot pain Neurological History: Reports: Migraines Psychiatric History: Reports: Anxiety, Depression Endocrine/Metabolic History: Reports: Vitamin D Deficiency, Other (See Below) Other Endocrine/Metabolic History: hair loss, goiter Hematologic History: Reports: None Immunologic History: Reports: None Oncologic (Cancer) History: Reports: None Dermatologic History: Reports: Other (See Below) Other Dermatologic History: contact dermatitis, plantar wart to foot, folliculitis - Infectious Disease History Infectious Disease History: Reports: Chicken Pox - Past Surgical History HEENT Surgical History: Reports: Adenoidectomy, Myringotomy w Tube(s), Tonsillectomy GI Surgical History: Reports: Cholecystectomy Social & Family History - Family History Family Medical History: Noncontributory Endocrine/Metabolic: Reports: Diabetes, type II - Tobacco Use Tobacco Use Status *Q: Never Tobacco User - Caffeine Use Caffeine Use: Reports: Coffee Other Caffeine Use: occassionally - Recreational Drug Use Recreational Drug Use: No - Living Situation & Occupation Living situation: Reports: Occupation: Employed ED ROS GENERAL - Review of Systems Review Of Systems: See Below Constitutional: Reports: No Symptoms HEENT: Reports: No Symptoms Respiratory: Reports: Shortness of Breath. Denies: Cough Cardiovascular: Reports: No Symptoms Endocrine: Reports: No Symptoms GI/Abdominal: Reports: No Symptoms : Reports: No Symptoms Musculoskeletal: Reports: Other (left leg pain and tightness) ED EXAM, GENERAL - Physical Exam Exam: See Below Exam Limited By: No Limitations General Appearance: Alert, No Apparent Distress Ears: Normal External Exam Nose: Normal Inspection Head: Atraumatic, Normocephalic Neck: Normal Inspection Respiratory/Chest: No Respiratory Distress, Lungs Clear, Normal Breath Sounds Cardiovascular: Regular Rate, Rhythm, No Edema, No Murmur GI/Abdominal: Soft, Non-Tender, No Organomegaly, No Mass Back Exam: Normal Inspection Extremities: Other (Mild tenderness to the left posterior lower leg. Good sensation and pulses distally.) Neurological: Alert, Oriented, No Motor/Sensory Deficits #1 Interpretation EKG Date: 08/05/20 Time: 09:08 Rhythm: NSR Rate (Beats/Min): 62 [place]: Normal P-Wave: Present QRS: Normal ST-T: Normal QT: Normal Course - Vital Signs Last Recorded V/S: Last Vital Signs Temp 97.4 F 08/05/20 07:32 Pulse 81 08/05/20 07:32 Resp 15 08/05/20 07:32 BP Pulse Ox 99 08/05/20 07:32 - Orders/Labs/Meds Orders: Active Orders 24 hr Category Date Time Status Cardiac Monitoring [RC] . DIRECTED Care 08/05/20 07:51 Active EKG Documentation Completion [RC] STAT Care 08/05/20 07:52 Active Peripheral IV Care [RC] . DIRECTED Care 08/05/20 07:52 Active Sodium Chloride 0.9% [Normal Saline] 100 ml Med 08/05/20 08:15 Active IV ASDIRECTED Sodium Chloride 0.9% [Saline Flush] Med 08/05/20 07:51 Active 10 ml FLUSH ASDIRECTED PRN Sodium Chloride 0.9% [Saline Flush] Med 08/05/20 08:11 Active 10 ml FLUSH ONETIME PRN Peripheral IV Insertion Adult [OM.PC] Stat Oth 08/05/20 07:51 Ordered Medication Orders Sodium Chloride (Normal Saline) 100 mls @ 75 mls/hr IV ASDIRECTED HALI Last Admin: 08/05/20 10:22 Dose: 75 mls/hr Documented by: PAUL Sodium Chloride (Saline Flush) 10 ml FLUSH ASDIRECTED PRN PRN Reason: Keep Vein Open Sodium Chloride (Saline Flush) 10 ml FLUSH ONETIME PRN PRN Reason: IV FLUSH Last Admin: 08/05/20 10:22 Dose: 10 ml Documented by: Admin: 08/05/20 09:30 Dose: 10 ml Documented by: KHADAR Labs: Laboratory Tests 08/05/20 08/05/20 08/05/20 Range/Units 08:20 08:20 08:20 WBC 5.84 (3.98-10.04) K/mm3 RBC 4.85 (3.98-5.22) M/mm3 Hgb 13.8 (11.2-15.7) gm/dl Hct 42.6 (34.1-44.9) % MCV 87.8 (79.4-94.8) fl MCH 28.5 (25.6-32.2) pg MCHC 32.4 (32.2-35.5) g/dl RDW Std Deviation 46.6 H (36.4-46.3) fL Plt Count 157 L (182-369) K/mm3 MPV 13.1 H (9.4-12.3) fl Neut % (Auto) 51.8 (34.0-71.1) % Lymph % (Auto) 30.0 (19.3-51.7) % [place] % (Auto) 13.7 H (4.7-12.5) % Eos % (Auto) 3.6 (0.7-5.8) Baso % (Auto) 0.7 (0.1-1.2) % Neut # (Auto) 3.03 (1.56-6.13) K/mm3 Lymph # (Auto) 1.75 (1.18-3.74) K/mm3 [place] # (Auto) 0.80 H (0.24-0.36) K/mm3 Eos # (Auto) 0.21 (0.04-0.36) K/mm3 Baso # (Auto) 0.04 (0.01-0.08) K/mm3 D-Dimer, Quantitative 0.45 (0.19-0.50) mg/L Sodium 138 (136-145) mEq/L Potassium 3.9 (3.5-5.1) mEq/L Chloride 105 (98-107) mEq/L Carbon Dioxide 27 (21-32) mEq/L Anion Gap 9.9 (5-15) BUN 12 (7-18) mg/dL Creatinine 0.7 (0.55-1.02) mg/dL Est Cr Clr Drug Dosing 117.84 mL/min Estimated GFR (MDRD) > 60 (>60) mL/min BUN/Creatinine Ratio 17.1 (14-18) Glucose 91 (74-106) mg/dL Lactic Acid (0.4-2.0) mmol/L Calcium 9.5 (8.5-10.1) mg/dL Magnesium 2.3 (1.8-2.4) mg/dl Total Bilirubin 0.4 (0.2-1.0) mg/dL AST 21 (15-37) U/L ALT 48 (14-59) U/L Alkaline Phosphatase 66 (46-116) U/L Troponin I < 0.017 (0.00-0.056) ng/mL C-Reactive Protein 0.2 (<1.0) mg/dL NT-Pro-B Natriuret Pep (0-125) pg/mL Total Protein 7.0 (6.4-8.2) g/dl Albumin 3.3 L (3.4-5.0) g/dl Globulin 3.7 gm/dL Albumin/Globulin Ratio 0.9 L (1-2) 08/05/20 08/05/20 Range/Units 08:20 08:20 WBC (3.98-10.04) K/mm3 RBC (3.98-5.22) M/mm3 Hgb (11.2-15.7) gm/dl Hct (34.1-44.9) % MCV (79.4-94.8) fl MCH (25.6-32.2) pg MCHC (32.2-35.5) g/dl RDW Std Deviation (36.4-46.3) fL Plt Count (182-369) K/mm3 MPV (9.4-12.3) fl Neut % (Auto) (34.0-71.1) % Lymph % (Auto) (19.3-51.7) % [place] % (Auto) (4.7-12.5) % Eos % (Auto) (0.7-5.8) Baso % (Auto) (0.1-1.2) % Neut # (Auto) (1.56-6.13) K/mm3 Lymph # (Auto) (1.18-3.74) K/mm3 [place] # (Auto) (0.24-0.36) K/mm3 Eos # (Auto) (0.04-0.36) K/mm3 Baso # (Auto) (0.01-0.08) K/mm3 D-Dimer, Quantitative (0.19-0.50) mg/L Sodium (136-145) mEq/L Potassium (3.5-5.1) mEq/L Chloride (98-107) mEq/L Carbon Dioxide (21-32) mEq/L Anion Gap (5-15) BUN (7-18) mg/dL Creatinine (0.55-1.02) mg/dL Est Cr Clr Drug Dosing mL/min Estimated GFR (MDRD) (>60) mL/min BUN/Creatinine Ratio (14-18) Glucose (74-106) mg/dL Lactic Acid 0.8 (0.4-2.0) mmol/L Calcium (8.5-10.1) mg/dL Magnesium (1.8-2.4) mg/dl Total Bilirubin (0.2-1.0) mg/dL AST (15-37) U/L ALT (14-59) U/L Alkaline Phosphatase (46-116) U/L Troponin I (0.00-0.056) ng/mL C-Reactive Protein (<1.0) mg/dL NT-Pro-B Natriuret Pep 31 (0-125) pg/mL Total Protein (6.4-8.2) g/dl Albumin (3.4-5.0) g/dl Globulin gm/dL Albumin/Globulin Ratio (1-2) Meds: Medications Generic Name Dose Route Start Last Admin Trade Name Freq PRN Reason Stop Dose Admin Sodium Chloride 100 mls @ 75 mls/hr 08/05/20 08:15 08/05/20 10:22 Normal Saline IV 75 mls/hr ASDIRECTED HALI Administration Sodium Chloride 10 ml 08/05/20 07:51 Saline Flush FLUSH ASDIRECTED PRN Keep Vein Open Sodium Chloride 10 ml 08/05/20 08:11 08/05/20 10:22 Saline Flush FLUSH 10 ml ONETIME PRN Administration IV FLUSH Discontinued Medications Generic Name Dose Route Start Last Admin Trade Name Freq PRN Reason Stop Dose Admin Iopamidol 100 ml 08/05/20 08:11 08/05/20 10:22 Isovue-370 (76%) IVPUSH 08/05/20 08:12 100 ml ONETIME ONE Administration - Re-Assessments/Exams Free Text/Narrative Re-Assessment/Exam: 08/05/20 08:24 I have ordered an IV saline lock, labs, CT angio of the chest, EKG, and an US of her left leg. 08/05/20 10:18 Her EKG shows a NSR with no acute changes. Her CT angio shows no pulmonary embolus or other acute thoracic disease identified. The US of her leg no DVT. Her CBC and CMP look good. Her D-dimer and troponin are negative. Her CRP is normal. I am waiting for her COVID 19 results. 08/05/20 11:11 The COVID 19 is negative. I am not sure what is causing her shortness of breath at this time. She says her fit bit shows tachycardia when she has these episodes. I will get her on a holter monitor for a couple of days and have her follow up with Jyoti Avila. Departure - Departure Time of Disposition: 11:20 Disposition: Home, Self-Care 01 Condition: Good Clinical Impression: Dyspnea on exertion - Discharge Information *PRESCRIPTION DRUG MONITORING PROGRAM REVIEWED*: Not Applicable *COPY OF PRESCRIPTION DRUG MONITORING REPORT IN PATIENT NISHANT: Not Applicable Referrals: Jyoti Avila, [employer] [Primary Care Provider] - 1 Week Forms: ED Department Discharge Additional Instructions: Wear the holter monitor for 48 hours. Keep drinking fluids like you have been. Keep track of what you are doing when you have these episodes and follow up with Jyoti Avila within a week. Please return if you are worse. Sepsis Event Note (ED) - Evaluation Sepsis Screening Result: No Definite Risk - Focused Exam Vital Signs: Vital Signs Temp Pulse Resp Pulse Ox 08/05/20 07:32 97.4 F 81 15 99 - My Orders Last 24 Hours: My Active Orders 08/05/20 07:51 Cardiac Monitoring [RC] . DIRECTED Sodium Chloride 0.9% [Saline Flush] 10 ml FLUSH ASDIRECTED PRN Peripheral IV Insertion Adult [OM.PC] Stat 08/05/20 07:52 EKG Documentation Completion [RC] STAT Peripheral IV Care [RC] . DIRECTED 08/05/20 08:11 Sodium Chloride 0.9% [Saline Flush] 10 ml FLUSH ONETIME PRN 08/05/20 08:15 Sodium Chloride 0.9% [Normal Saline] 100 ml IV ASDIRECTED - Assessment/Plan Last 24 Hours: My Active Orders 08/05/20 07:51 Cardiac Monitoring [RC] . DIRECTED Sodium Chloride 0.9% [Saline Flush] 10 ml FLUSH ASDIRECTED PRN Peripheral IV Insertion Adult [OM.PC] Stat 08/05/20 07:52 EKG Documentation Completion [RC] STAT Peripheral IV Care [RC] . DIRECTED 08/05/20 08:11 Sodium Chloride 0.9% [Saline Flush] 10 ml FLUSH ONETIME PRN 08/05/20 08:15 Sodium Chloride 0.9% [Normal Saline] 100 ml IV ASDIRECTED
[2020-08-05] MEDS ORDERED: Iopamidol 755 Mg/ML 100 ML Bottle IVPUSH ONE (08:11)
[2020-08-05] MEDS ORDERED: Sodium Chloride 0.9% 100 ML IV SCH (08:15)
[2020-08-05] MEDS: Sodium Chloride 0.9% 10 ML Syringe FLUSH PRN ×2 (09:30→10:22)
--- NOTE | 2020-08-05 10:33 | US ---
PROCEDURE INFORMATION: Exam: US Duplex Left Lower Extremity Veins, Limited Exam date and time: 08/05/2020 8:16 AM Age: 40 years old Clinical indication: Pain; Leg, lower; Left TECHNIQUE: Imaging protocol: Real-time Duplex ultrasound of the Left Lower Extremity with 2-D barbosa scale, color Doppler flow and spectral waveform analysis with image documentation. Limited exam focused on the left lower extremity veins. COMPARISON: No relevant prior studies available. FINDINGS: Left deep veins: Unremarkable. The common femoral, femoral, proximal profunda femoral and popliteal veins are patent without thrombus. Normal Doppler waveforms. Normal compressibility and/or augmentation response. The posterior tibial and peroneal veins in the calf are patent as well. The contralateral common femoral vein is also patent. Left superficial veins: Unremarkable. Saphenofemoral junction is patent without thrombus. Soft tissues: Unremarkable. IMPRESSION: No deep venous thrombus demonstrated in the left lower extremity. Thank you for allowing us to participate in the care of your patient. Dictated and Authenticated by: Idris Cardenas MD 08/05/2020 10:26 AM Central Time ([place] & [place]) JESSICA
--- NOTE | 2020-08-05 10:35 | CT ---
"PROCEDURE INFORMATION: Exam: CT Chest With Contrast Exam date and time: 08/05/2020 10:07 AM Age: 40 years old Clinical indication: Shortness of breath; Patient HX: HX dvt. Prior CT report in images sent today TECHNIQUE: Imaging protocol: Computed tomography of the chest with intravenous contrast. 3D rendering (Not supervised by radiologist): MIP and/or 3D reconstructed images were created by the technologist. Radiation optimization: All CT scans at this facility use at least one of these dose optimization techniques: automated exposure control; mA and/or kV adjustment per patient size (includes targeted exams where dose is matched to clinical indication); or iterative reconstruction. Contrast material: ISO 370; Contrast volume: 100 ml; Contrast route: INTRAVENOUS (IV); COMPARISON: CT Ang Chest 08/12/2018 7:26 PM FINDINGS: Lungs: Mild dependent atelectasis is present bilaterally. The lungs are otherwise clear. The central airways appear patent. Pleural space: Unremarkable. No pneumothorax. No pleural effusion. Heart: Unremarkable. No cardiomegaly. No pericardial effusion. Pulmonary arteries: No pulmonary embolus is identified. Aorta: The thoracic aorta is nonaneurysmal. Lymph nodes: Unremarkable. No enlarged lymph nodes. Gallbladder and bile ducts: Cholecystectomy clips are again present. Bones/joints: Degenerative changes again involve the spine. Soft tissues: Unremarkable. IMPRESSION: No pulmonary embolus or other acute thoracic disease identified. ASHLEY LANGE | Final Radiology Report CONFIDENTIALITY STATEMENT This report is intended only for use by the referring physician, and only in accordance with law. If you received this in error, call [phone]. Page 2 of 2 Thank you for allowing us to participate in the care of your patient. Dictated and Authenticated by: Idris Cardenas MD 08/05/2020 11:03 AM Central Time ([place] & [place]) JESSICA"
== END 2020-08-05 11:35 | disposition home or self-care (01) ==
LOC: JD.ED 07:20
DX: R06.02 Shortness of breath (principal); F41.9 Anxiety disorder, unspecified; F32.9 Major depressive disorder, single episode, unspecified; Z20.828 Contact with and (suspected) exposure to other viral communicable diseases; Z86.718 Personal history of other venous thrombosis and embolism; Z86.711 Personal history of pulmonary embolism; Z91.040 Latex allergy status; Z88.8 Allergy status to other drugs, medicaments and biological substances; Z79.899 Other long term (current) drug therapy
CPT/HCPCS: 36415; 71275; 80053; 83605; 83735; 83880; 84484; 85025; 85379; 86140; 87635; 93005; 93225; 93226; 93971; 99285; Q9967; 99284; U0002

== ENCOUNTER 2020-09-04 10:30 | Emergency (ER) | payer OTHER ==
[2020-09-04] MEDS ORDERED: Sodium Chloride 0.9% 10 ML Syringe FLUSH PRN ×2 (11:05→11:38)
[2020-09-04] MEDS ORDERED: Sodium Chloride 0.9% 1,000 ML IV STA (11:08)
--- NOTE | 2020-09-04 11:14 | EDM.PDOC ---
ED HPI GENERAL MEDICAL PROBLEM - General Chief Complaint: Cardiovascular Problem Stated Complaint: L LEG NUMBNESS/SOB Time Seen by Provider: 09/04/20 11:03 Source of Information: Reports: Patient, RN Notes Reviewed History Limitations: Reports: No Limitations - History of Present Illness INITIAL COMMENTS - FREE TEXT/NARRATIVE: Patient is a 40-year-old female presenting to the emergency department with complaints of swelling and occasional numbness and tingling to her left lower extremity as well as shortness of breath. She noticed the swelling of her left lower extremity on Wednesday of this week which would about 5 days ago. It has been fairly consistent since that time. Yesterday she developed some mild shortness of breath and what she describes as a "heaviness "in her chest". 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 At that time she was treated with Coumadin but is no longer on anticoagulation. She is not on any hormonal control. States that she did have clotting studies done and they were unable to pinpoint a reason for her abnormal clotting. Signs on triage were found to be stable. Pulse 67, oxygen saturation 99% on room air, respiratory rate 13, blood pressure 106/74, temperature 98.4. Left Leg Pain Score (Numeric/FACES): 2 - Related Data Allergies Allergy/AdvReac Type Severity Reaction Status Date / Time Estrogens Allergy unknown Verified 09/04/20 10:44 latex Allergy Anaphylactic Verified 09/04/20 10:44 Shock Home Meds: Home Meds Loratadine/Pseudoephedrine [Alavert D-12 Allergy-Sinus] 1 tab PO BID PRN 11/17/18 [History] Ondansetron [Zofran ODT] 4 mg PO Q6H PRN #20 tab.dis 12/01/18 [Rx] DULoxetine [Cymbalta] 60 mg PO DAILY 12/01/19 [History] Amoxicillin/Clavulanate K [Augmentin 875-125 MG] 1 tab PO Q12H 09/04/20 [History] SUMAtriptan [Imitrex] 09/04/20 [History] Triamterene/Hydrochlorothiazid [Triamterene-HCTZ 37.5-25 MG] 1 cap PO DAILY 09/04/20 [History] Past Medical History HEENT History: Reports: Allergic Rhinitis, Impaired Vision, Sinusitis, Other (See Below) Other HEENT History: right hearing loss, sore throat, recurrent ear infeciton, sinus infections Cardiovascular History: Reports: Blood Clots/VTE/DVT, Other (See Below) Other Cardiovascular History: palpitations at night Respiratory History: Reports: PE, Other (See Below) Other Respiratory History: cough Gastrointestinal History: Reports: GERD, Other (See Below) Other Gastrointestinal History: IBS, delayed gastric emptyinh, gastric ulcer Genitourinary History: Reports: None DIRECTOR OF INFECTION CONTROL History: Reports: Endometrial Ablation, , Other (See Below) Other DIRECTOR OF INFECTION CONTROL History: abnormal uterine bleeding, vaginal discomfort Musculoskeletal History: Reports: Fracture, Gout, Other (See Below) Other Musculoskeletal History: foot tendinitis, left foot pain Neurological History: Reports: Migraines Psychiatric History: Reports: Anxiety, Depression Endocrine/Metabolic History: Reports: Vitamin D Deficiency, Other (See Below) Other Endocrine/Metabolic History: hair loss, goiter Hematologic History: Reports: None Immunologic History: Reports: None Oncologic (Cancer) History: Reports: None Dermatologic History: Reports: Other (See Below) Other Dermatologic History: contact dermatitis, plantar wart to foot, folliculitis - Infectious Disease History Infectious Disease History: Reports: Chicken Pox - Past Surgical History Head Surgeries/Procedures: Reports: None HEENT Surgical History: Reports: Adenoidectomy, Myringotomy w Tube(s), Tonsillectomy Cardiovascular Surgical History: Reports: None Respiratory Surgical History: Reports: None GI Surgical History: Reports: Cholecystectomy Female Surgical History: Reports: None Endocrine Surgical History: Reports: None Neurological Surgical History: Reports: None Musculoskeletal Surgical History: Reports: None Oncologic Surgical History: Reports: None Social & Family History - Family History Family Medical History: No Pertinent Family History Endocrine/Metabolic: Reports: Diabetes, type II - Tobacco Use Tobacco Use Status *Q: Never Tobacco User - Caffeine Use Caffeine Use: Reports: Coffee Other Caffeine Use: occassionally - Recreational Drug Use Recreational Drug Use: No - Living Situation & Occupation Living situation: Reports: Occupation: Employed ED ROS GENERAL - Review of Systems Review Of Systems: See Below Constitutional: Reports: No Symptoms HEENT: Reports: No Symptoms Respiratory: Reports: Shortness of Breath. Denies: Pleuritic Chest Pain, Cough Cardiovascular: Reports: Edema (Left lower extremity). Denies: Chest Pain, Palpitations Endocrine: Reports: No Symptoms GI/Abdominal: Reports: No Symptoms : Reports: No Symptoms Musculoskeletal: Reports: No Symptoms Skin: Reports: No Symptoms Neurological: Reports: No Symptoms Psychiatric: Reports: No Symptoms Hematologic/Lymphatic: Reports: No Symptoms Immunologic: Reports: No Symptoms ED EXAM, GENERAL - Physical Exam Exam: See Below Exam Limited By: No Limitations General Appearance: Alert, WD/WN, No Apparent Distress Respiratory/Chest: No Respiratory Distress, Lungs Clear, Normal Breath Sounds, No Accessory Muscle Use, Chest Non-Tender Cardiovascular: Normal Peripheral Pulses, Regular Rate, Rhythm, No Gallop, No JVD, No Murmur, No Rub, Other (1+ nonpitting edema to the left calf) GI/Abdominal: Normal Bowel Sounds, Soft, Non-Tender, No Organomegaly, No Distention, No Abnormal Bruit, No Mass Neurological: Alert, Oriented, CN II-XII Intact, Normal Cognition, Normal Gait, Normal Reflexes, No Motor/Sensory Deficits Psychiatric: Normal Affect, Normal Mood Skin Exam: Warm, Dry, Intact, Normal Color, No Rash Course - Vital Signs Last Recorded V/S: Last Vital Signs Temp 98.4 F 09/04/20 10:38 Pulse 64 09/04/20 13:40 Resp 16 09/04/20 13:40 BP 102/67 09/04/20 13:40 Pulse Ox 99 09/04/20 13:40 - Orders/Labs/Meds Labs: Laboratory Tests 09/04/20 09/04/20 09/04/20 Range/Units 10:45 10:45 10:45 WBC 5.62 (3.98-10.04) K/mm3 RBC 4.70 (3.98-5.22) M/mm3 Hgb 13.4 (11.2-15.7) gm/dl Hct 41.7 (34.1-44.9) % MCV 88.7 (79.4-94.8) fl MCH 28.5 (25.6-32.2) pg MCHC 32.1 L (32.2-35.5) g/dl RDW Std Deviation 47.9 H (36.4-46.3) fL Plt Count 184 (182-369) K/mm3 MPV 13.2 H (9.4-12.3) fl Neut % (Auto) 52.0 (34.0-71.1) % Lymph % (Auto) 33.5 (19.3-51.7) % [place] % (Auto) 10.7 (4.7-12.5) % Eos % (Auto) 2.7 (0.7-5.8) Baso % (Auto) 0.9 (0.1-1.2) % Neut # (Auto) 2.93 (1.56-6.13) K/mm3 Lymph # (Auto) 1.88 (1.18-3.74) K/mm3 [place] # (Auto) 0.60 H (0.24-0.36) K/mm3 Eos # (Auto) 0.15 (0.04-0.36) K/mm3 Baso # (Auto) 0.05 (0.01-0.08) K/mm3 ESR (0-20) mm/hr D-Dimer, Quantitative 0.52 H (0.19-0.50) mg/L Sodium 138 (136-145) mEq/L Potassium 3.4 L (3.5-5.1) mEq/L Chloride 103 (98-107) mEq/L Carbon Dioxide 25 (21-32) mEq/L Anion Gap 13.4 (5-15) BUN 11 (7-18) mg/dL Creatinine 0.6 (0.55-1.02) mg/dL Est Cr Clr Drug Dosing 137.48 mL/min Estimated GFR (MDRD) > 60 (>60) mL/min BUN/Creatinine Ratio 18.3 H (14-18) Glucose 96 (74-106) mg/dL Calcium 9.1 (8.5-10.1) mg/dL Total Bilirubin 0.4 (0.2-1.0) mg/dL AST 20 (15-37) U/L ALT 46 (14-59) U/L Alkaline Phosphatase 75 (46-116) U/L C-Reactive Protein 0.5 (<1.0) mg/dL Total Protein 7.1 (6.4-8.2) g/dl Albumin 3.5 (3.4-5.0) g/dl Globulin 3.6 gm/dL Albumin/Globulin Ratio 1.0 (1-2) Vitamin B12 (193-986) pg/ml 09/04/20 09/04/20 Range/Units 10:45 10:45 WBC (3.98-10.04) K/mm3 RBC (3.98-5.22) M/mm3 Hgb (11.2-15.7) gm/dl Hct (34.1-44.9) % MCV (79.4-94.8) fl MCH (25.6-32.2) pg MCHC (32.2-35.5) g/dl RDW Std Deviation (36.4-46.3) fL Plt Count (182-369) K/mm3 MPV (9.4-12.3) fl Neut % (Auto) (34.0-71.1) % Lymph % (Auto) (19.3-51.7) % [place] % (Auto) (4.7-12.5) % Eos % (Auto) (0.7-5.8) Baso % (Auto) (0.1-1.2) % Neut # (Auto) (1.56-6.13) K/mm3 Lymph # (Auto) (1.18-3.74) K/mm3 [place] # (Auto) (0.24-0.36) K/mm3 Eos # (Auto) (0.04-0.36) K/mm3 Baso # (Auto) (0.01-0.08) K/mm3 ESR 2 (0-20) mm/hr D-Dimer, Quantitative (0.19-0.50) mg/L Sodium (136-145) mEq/L Potassium (3.5-5.1) mEq/L Chloride (98-107) mEq/L Carbon Dioxide (21-32) mEq/L Anion Gap (5-15) BUN (7-18) mg/dL Creatinine (0.55-1.02) mg/dL Est Cr Clr Drug Dosing mL/min Estimated GFR (MDRD) (>60) mL/min BUN/Creatinine Ratio (14-18) Glucose (74-106) mg/dL Calcium (8.5-10.1) mg/dL Total Bilirubin (0.2-1.0) mg/dL AST (15-37) U/L ALT (14-59) U/L Alkaline Phosphatase (46-116) U/L C-Reactive Protein (<1.0) mg/dL Total Protein (6.4-8.2) g/dl Albumin (3.4-5.0) g/dl Globulin gm/dL Albumin/Globulin Ratio (1-2) Vitamin B12 638 (193-986) pg/ml Meds: Medications Discontinued Medications Generic Name Dose Route Start Last Admin Trade Name Kennyq PRN Reason Stop Dose Admin Sodium Chloride 1,000 mls @ 500 mls/hr 09/04/20 11:08 09/04/20 11:17 Normal Saline IV 09/04/20 13:07 500 mls/hr NOW STA Administration Sodium Chloride 100 mls @ 75 mls/hr 09/04/20 11:45 09/04/20 12:09 Normal Saline IV 75 mls/hr ASDIRECTED HALI Administration Iopamidol 100 ml 09/04/20 11:38 09/04/20 12:09 Isovue-370 (76%) IVPUSH 09/04/20 11:39 100 ml ONETIME ONE Administration Sodium Chloride 10 ml 09/04/20 11:05 09/04/20 11:17 Saline Flush FLUSH 10 ml ASDIRECTED PRN Administration Keep Vein Open Sodium Chloride 10 ml 09/04/20 11:38 09/04/20 12:09 Saline Flush FLUSH 10 ml ONETIME PRN Administration IV FLUSH - Re-Assessments/Exams Free Text/Narrative Re-Assessment/Exam: Hematology was significant for D-dimer minimally elevated at 0.52. Doppler ultrasound of the left lower extremity showed no evidence of DVTs. CT angiogram of the chest was negative for PEs. Patient did have lower extremity arterial testing done on September 02 which showed moderate peripheral arterial disease in both the right and left legs. Discussed results with the patient. Recommend that she follow-up with her primary care provider, Ortega Martinez NP, at her next available visit to discuss these results and for ongoing management. Consideration may be given to a possible diagnosis of Takayasu arteritis as it is quite rare to have PAD in a 40 year old female; however, further testing is required. Pt states that she was due to have her B12 level checked. I have added this, as well as an ESR on to her labs today so results are available when she follows-up in the clinic. Discharge instructions as documented. Departure - Departure Time of Disposition: 13:10 Disposition: Home, Self-Care 01 Condition: Good Clinical Impression: Peripheral arterial disease Instructions: Peripheral Vascular Disease, [id number] Referrals: Jyoti Avila NP [Primary Care Provider] - Forms: ED Department Discharge Additional Instructions: You were seen in the emergency department today for left lower extremity swelling as well as some mild shortness of breath that began yesterday. Work-up included blood work, venous Doppler ultrasound of the left lower extremity, and a CT angiogram of your chest. Overall work-up results were found to be normal. There is no evidence of a DVT in your leg or pulmonary emboli in your lungs. Results of your lower extremity arterial testing that was done on September 02 were reviewed. This does show that you have moderate peripheral arterial disease of both of your legs. As we discussed, it is imperative that you follow-up with your primary care provider for ongoing management of this finding and further testing as indicated. Recommend that you call and schedule an appointment with her at her next available visit. Return to ER as needed. Sepsis Event Note (ED) - Evaluation Sepsis Screening Result: No Definite Risk
[2020-09-04] MEDS ORDERED: Iopamidol 755 Mg/ML 100 ML Bottle IVPUSH ONE (11:38)
[2020-09-04] MEDS ORDERED: Sodium Chloride 0.9% 100 ML IV SCH (11:45)
--- NOTE | 2020-09-04 12:09 | US ---
Left lower extremity deep venous ultrasound: Duplex and color Doppler evaluation was obtained of the left common femoral, proximal greater saphenous, superficial femoral, popliteal, posterior tibial and peroneal vein. Right common femoral vein was also evaluated. Findings: Deep veins: Normal phasic flow, augmentation and compression is seen. Soft tissues: No abnormality is definitely appreciated. Impression: 1. No findings of deep venous thrombosis within the left lower extremity are within the right common femoral vein. Diagnostic code #1
--- NOTE | 2020-09-04 12:43 | CT ---
CT chest Technique: Multiple axial sections were obtained from above the lung apices inferiorly through the lung bases. Intravenous contrast was utilized. Study has been as a pulmonary angiogram protocol. Comparison: Prior CT chest of 08/12/18. Findings: Pulmonary arteries: Pulmonary arteries are well opacified. No filling defects are seen to indicate pulmonary embolis. Other mediastinal structures: Aorta shows no aneurysm. Minimal increased density within the mediastinum is seen superiorly most likely related to slight residual thymus tissue. No pericardial thickening is appreciated. Visualized upper abdominal structures: Previous cholecystectomy is noted. No other discrete abnormality is appreciated. Lungs: Lungs are clear. No acute parenchymal process is seen. No pleural disease is seen. Incidental minimal pleural nodule is seen within the right lung base which is felt to be stable from prior exam and therefore incidental. Osseous: No acute osseous abnormalities are appreciated. Impression: 1. No findings of pulmonary embolism. 2. Other findings believed to be incidental as noted above. Nothing acute is appreciated. Diagnostic code #2
[2020-09-04 13:41] VITALS: BP 102/67; PULSE 64
== END 2020-09-04 13:40 | disposition home or self-care (01) ==
LOC: JD.ED 10:30
DX: I73.9 Peripheral vascular disease, unspecified (principal); F41.9 Anxiety disorder, unspecified; F32.9 Major depressive disorder, single episode, unspecified; Z88.8 Allergy status to other drugs, medicaments and biological substances; Z91.040 Latex allergy status; Z79.899 Other long term (current) drug therapy
CPT/HCPCS: 36415; 71275; 71275-26; 80053; 82607; 85025; 85379; 85652; 86140; 93971-26-LT; 93971-LT; 99284; 99285-25; J7030; Q9967

== ENCOUNTER 2021-08-05 09:47 | Day surgery (SDC) | payer OTHER ==
--- NOTE | 2021-08-05 08:02 | PCM.PREANE ---
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 - Anesthesia/Transfusion/Family Hx Anesthesia History: Prior Anesthesia Without Reaction Family History of Anesthesia Reaction: No Transfusion History: No Prior Transfusion(s) Intubation History: Unknown - Review of Systems General: No Symptoms Pulmonary: No Symptoms Cardiovascular: Dyspnea on Exertion Gastrointestinal: No Symptoms Neurological: No Symptoms Other: Reports: Thyroid Problems (hypothyroid), Anxiety - Physical Assessment NPO Status Date: 08/04/21 NPO Status Time: 00:00 Height: 1.65 m Weight: 87.1 kg ASA Class: 2 Mental Status: Alert & Oriented x3 Airway Class: Mallampati = 1 Dentition: Reports: Dentures Thyro-Mental Finger Breadths: 3 Mouth Opening Finger Breadths: 3 ROM/Head Extension: Full Lungs: Clear to Auscultation, Normal Respiratory Effort Cardiovascular: Regular Rate, Regular Rhythm - Allergies Allergies/Adverse Reactions: Allergies Allergy/AdvReac Type Severity Reaction Status Date / Time Estrogens Allergy unknown Verified 08/04/21 16:35 latex Allergy Anaphylactic Verified 08/04/21 16:35 Shock PreAnesthesia Questionnaire HEENT History: Reports: Allergic Rhinitis, Impaired Vision, Sinusitis, Other (See Below) Other HEENT History: right hearing loss, sore throat, recurrent ear infeciton, sinus infections Cardiovascular History: Reports: Blood Clots/VTE/DVT, Other (See Below) Other Cardiovascular History: palpitations at night Respiratory History: Reports: PE, Other (See Below) Other Respiratory History: cough Gastrointestinal History: Reports: Chronic Diarrhea, Gastritis, GERD, Helicobacter Pylori, Other (See Below) Other Gastrointestinal History: IBS, delayed gastric emptyinh, gastric ulcer Genitourinary History: Reports: Urinary Incontinence FAMILY LAW SPECIALIST History: Reports: Endometrial Ablation, , Other (See Below) Other OB/BYN History: abnormal uterine bleeding, vaginal discomfort Musculoskeletal History: Reports: Fracture, Gout, Other (See Below) Other Musculoskeletal History: foot tendinitis, left foot pain Neurological History: Reports: Migraines Psychiatric History: Reports: Anxiety, Depression Endocrine/Metabolic History: Reports: Vitamin D Deficiency, Other (See Below) Other Endocrine/Metabolic History: hair loss, goiter Hematologic History: Reports: Anemia Immunologic History: Reports: None Oncologic (Cancer) History: Reports: None Dermatologic History: Reports: Other (See Below) Other Dermatologic History: contact dermatitis, plantar wart to foot, folliculitis - Infectious Disease History Infectious Disease History: Reports: Chicken Pox - Past Surgical History Head Surgeries/Procedures: Reports: None HEENT Surgical History: Reports: Adenoidectomy, Myringotomy w Tube(s), Tonsillectomy Cardiovascular Surgical History: Reports: None Respiratory Surgical History: Reports: None GI Surgical History: Reports: Cholecystectomy, EGD Female Surgical History: Reports: None, Other (See Below) Other Female Surgeries/Procedures: hysteroscopy Male Surgical History: Reports: None Endocrine Surgical History: Reports: None Neurological Surgical History: Reports: None Musculoskeletal Surgical History: Reports: None Oncologic Surgical History: Reports: None - SUBSTANCE USE Tobacco Use Status *Q: Current Every Day Tobacco User Tobacco Use Within Last Twelve Months: Cigarettes Second Hand Smoke Exposure: No Days Per Week of Alcohol Use: 1 Number of Drinks Per Day: 2 Total Drinks Per Week: 2 Recreational Drug Use History: No - HOME MEDS Home Medications: Home Meds Albuterol [Ventolin HFA] 1 - 2 puff INH Q4H PRN 08/04/21 [History] Aspirin/Acetaminophen/Caffeine [Excedrin Migraine Caplet] 2 tab PO Q6H PRN 08/04/21 [History] Benzonatate 100 mg PO ASDIRECTED PRN 08/04/21 [History] Biotin 1 mg PO DAILY 08/04/21 [History] Calcium Carb/D3/Magnesium/Zinc [Manohar Mag Zinc-D Tablet] 1 tab PO DAILY 08/04/21 [History] Calcium Carbonate [Tums Extra Strength] 4 - 6 tab PO Q4H PRN 08/04/21 [History] Cholecalciferol (Vitamin D3) [Vitamin D3] 1,000 unit PO DAILY 08/04/21 [History] Cyanocobalamin (Vitamin B-12) [Vitamin B-12] 1,000 mcg PO DAILY 08/04/21 [History] DULoxetine [Cymbalta] 60 mg PO DAILY 08/04/21 [History] Fluticasone Propionate [Flonase] 1 dose NASBOTH BID 08/04/21 [History] LORazepam [Ativan] 0.5 mg PO Q8H PRN 08/04/21 [History] Lifitegrast [Xiidra] 1 drop EYEBOTH ASDIRECTED PRN 08/04/21 [History] Metoclopramide HCl [Reglan] 10 mg PO TID PRN 08/04/21 [History] Mv-Min/Iron/Folic/Calcium/Vitk [Women's Daily Formula Tablet] 1 tab PO DAILY 08/04/21 [History] Pantoprazole Sodium [Protonix] 40 mg PO BID 08/04/21 [History] SUMAtriptan [Imitrex] 50 mg PO ASDIRECTED PRN 08/04/21 [History] Sucralfate [Carafate] 1 gm PO QID 08/04/21 [History] Topiramate 50 mg PO BEDTIME 08/04/21 [History] Ubrogepant [Ubrelvy] 50 mg PO DAILY 08/04/21 [History] ondansetron HCL [Zofran] 4 mg PO Q6H PRN 08/04/21 [History] - CURRENT (IN HOUSE) MEDS Current Meds: Current Medications Lactated Ringer's (Ringers, Lactated) 1,000 mls @ 125 mls/hr IV ASDIRECTED HALI Stop: 08/05/21 23:00 Lidocaine/Sodium Bicarbonate (Lidocaine 1%/Sod Bicarbonate In Ns 8.4% 1 Ml Syringe) 0.25 ml IDERM ONETIME PRN PRN Reason: Prior to IV Start Stop: 08/05/21 18:00 Sodium Chloride (Sodium Chloride 0.9% 10 Ml Syringe) 10 ml FLUSH ASDIRECTED PRN PRN Reason: Keep Vein Open Stop: 08/05/21 18:00
[~2021-08-05 09:47] MED LIST changes: +Lactated Ringers 1,000 ML IV SCH
--- NOTE | 2021-08-05 10:13 | PCM.PREANE ---
Preanesthetic Assessment - Procedure Proposed Procedure: Diag EGD - Anesthesia/Transfusion/Family Hx Anesthesia History: Prior Anesthesia Without Reaction Family History of Anesthesia Reaction: No Transfusion History: No Prior Transfusion(s) Intubation History: Unknown - Review of Systems General: No Symptoms Pulmonary: No Symptoms Cardiovascular: No Symptoms Gastrointestinal: Nausea, Other ("acid burning sensation") Neurological: No Symptoms - Physical Assessment NPO Status Date: 08/04/21 NPO Status Time: 00:00 Height: 1.78 m Weight: 82.1 kg ASA Class: 2 Mental Status: Alert & Oriented x3 Airway Class: Mallampati = 1 Dentition: Reports: Normal Dentition Thyro-Mental Finger Breadths: 3 Mouth Opening Finger Breadths: 3 ROM/Head Extension: Full Lungs: Clear to Auscultation, Normal Respiratory Effort Cardiovascular: Regular Rate, Regular Rhythm - Allergies Allergies/Adverse Reactions: Allergies Allergy/AdvReac Type Severity Reaction Status Date / Time Estrogens Allergy unknown Verified 08/04/21 16:35 latex Allergy Anaphylactic Verified 08/04/21 16:35 Shock - Blood Blood Available: No Product(s) Available: None - Anesthesia Plan Pre-Op Medication Ordered: None - Acknowledgements Anesthesia Type Planned: MAC Pt an Appropriate Candidate for the Planned Anesthesia: Yes Alternatives and Risks of Anesthesia Discussed w Pt/Guardian: Yes Pt/Guardian Understands and Agrees with Anesthesia Plan: Yes PreAnesthesia Questionnaire HEENT History: Reports: Allergic Rhinitis, Impaired Vision, Sinusitis, Other (See Below) Other HEENT History: right hearing loss, sore throat, recurrent ear infeciton, sinus infections Cardiovascular History: Reports: Blood Clots/VTE/DVT, Other (See Below) Other Cardiovascular History: palpitations at night Respiratory History: Reports: PE, Other (See Below) Other Respiratory History: cough Gastrointestinal History: Reports: Chronic Diarrhea, Gastritis, GERD, Helicobacter Pylori, Other (See Below) Other Gastrointestinal History: IBS, delayed gastric emptyinh, gastric ulcer Genitourinary History: Reports: Urinary Incontinence 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, , Other (See Below) Other OB/BYN History: abnormal uterine bleeding, vaginal discomfort Musculoskeletal History: Reports: Fracture, Gout, Other (See Below) Other Musculoskeletal History: foot tendinitis, left foot pain Neurological History: Reports: Migraines Psychiatric History: Reports: Anxiety, Depression Endocrine/Metabolic History: Reports: Vitamin D Deficiency, Other (See Below) Other Endocrine/Metabolic History: hair loss, goiter Hematologic History: Reports: Anemia Immunologic History: Reports: None Oncologic (Cancer) History: Reports: None Dermatologic History: Reports: Other (See Below) Other Dermatologic History: contact dermatitis, plantar wart to foot, folliculitis - Infectious Disease History Infectious Disease History: Reports: Chicken Pox - Past Surgical History Head Surgeries/Procedures: Reports: None HEENT Surgical History: Reports: Adenoidectomy, Myringotomy w Tube(s), Tonsillectomy Cardiovascular Surgical History: Reports: None Respiratory Surgical History: Reports: None GI Surgical History: Reports: Cholecystectomy, EGD Female Surgical History: Reports: None, Other (See Below) Other Female Surgeries/Procedures: hysteroscopy Male Surgical History: Reports: None Endocrine Surgical History: Reports: None Neurological Surgical History: Reports: None Musculoskeletal Surgical History: Reports: None Oncologic Surgical History: Reports: None - SUBSTANCE USE Tobacco Use Status *Q: Never Tobacco User Second Hand Smoke Exposure: No Days Per Week of Alcohol Use: 0 Number of Drinks Per Day: 0 Total Drinks Per Week: 0 Recreational Drug Use History: No - HOME MEDS Home Medications: Home Meds Albuterol [Ventolin HFA] 1 - 2 puff INH Q4H PRN 08/04/21 [History] Aspirin/Acetaminophen/Caffeine [Excedrin Migraine Caplet] 2 tab PO Q6H PRN 08/04/21 [History] Benzonatate 100 mg PO ASDIRECTED PRN 08/04/21 [History] Biotin 1 mg PO DAILY 08/04/21 [History] Calcium Carb/D3/Magnesium/Zinc [Manohar Mag Zinc-D Tablet] 1 tab PO DAILY 08/04/21 [History] Calcium Carbonate [Tums Extra Strength] 4 - 6 tab PO Q4H PRN 08/04/21 [History] Cholecalciferol (Vitamin D3) [Vitamin D3] 1,000 unit PO DAILY 08/04/21 [History] Cyanocobalamin (Vitamin B-12) [Vitamin B-12] 1,000 mcg PO DAILY 08/04/21 [History] DULoxetine [Cymbalta] 60 mg PO DAILY 08/04/21 [History] Fluticasone Propionate [Flonase] 1 dose NASBOTH BID 08/04/21 [History] LORazepam [Ativan] 0.5 mg PO Q8H PRN 08/04/21 [History] Lifitegrast [Xiidra] 1 drop EYEBOTH ASDIRECTED PRN 08/04/21 [History] Metoclopramide HCl [Reglan] 10 mg PO TID PRN 08/04/21 [History] Mv-Min/Iron/Folic/Calcium/Vitk [Women's Daily Formula Tablet] 1 tab PO DAILY 08/04/21 [History] Pantoprazole Sodium [Protonix] 40 mg PO BID 08/04/21 [History] SUMAtriptan [Imitrex] 50 mg PO ASDIRECTED PRN 08/04/21 [History] Sucralfate [Carafate] 1 gm PO QID 08/04/21 [History] Topiramate 50 mg PO BEDTIME 08/04/21 [History] Ubrogepant [Ubrelvy] 50 mg PO DAILY 08/04/21 [History] ondansetron HCL [Zofran] 4 mg PO Q6H PRN 08/04/21 [History] - CURRENT (IN HOUSE) MEDS Current Meds: Current Medications Lactated Ringer's (Ringers, Lactated) 1,000 mls @ 125 mls/hr IV ASDIRECTED HALI Stop: 08/05/21 23:00 Lidocaine/Sodium Bicarbonate (Lidocaine 1%/Sod Bicarbonate In Ns 8.4% 1 Ml Syringe) 0.25 ml IDERM ONETIME PRN PRN Reason: Prior to IV Start Stop: 08/05/21 18:00 Sodium Chloride (Sodium Chloride 0.9% 10 Ml Syringe) 10 ml FLUSH ASDIRECTED PRN PRN Reason: Keep Vein Open Stop: 08/05/21 18:00
[2021-08-05] MEDS ORDERED: Lidocaine 1% 4 ML ONE (10:48)
[2021-08-05] MEDS ORDERED: Propofol 200 MG/20 ML SDV ONE ×2 (10:48→11:51)
[2021-08-05] MEDS ORDERED: Midazolam 1 MG/ML 2 ML SDV ONE (10:48)
--- NOTE | 2021-08-05 12:14 | PCM.PRNOTE ---
- Free Text/Narrative Note: Date: 08/05/2021 Procedure: diagnostic esophagogastroduodenoscopy Indication: refractory reflux type symptoms including dysphagia Endoscopist: Masood Galindo MD Findings: sliding hiatal hernia with gross appearance of esophagitis. Bile reflux. Detailed Report: The patient was taken to the endoscopy suite and placed in left lateral decubitus position. Timeout was performed and monitored anesthesia care was initiated. A bite-block was placed and the endoscope was inserted into the mouth. The scope was advanced to the distal duodenum with ease. Duodenal mucosa appeared grossly normal. A biopsy of mucosa from the duodenal bulb was obtained with cold forceps. The scope was withdrawn into the stomach. Bile reflux was noted. The gastric mucosa otherwise appeared grossly normal. A sample biopsy of antral mucosa was obtained with cold forceps. On retroflexion of the scope within the stomach, hiatal hernia was noted. The scope was withdrawn into the distal esophagus and the sliding hernia was apparent from this view as well. The Z-line appeared grossly normal. There appeared to be some inflammatory changes of the esophageal mucosa proximally consistent with reflux esophagitis. A biopsy of the distal esophageal mucosa and mid esophageal mucosa was obtained. There appeared to be evidence of the patient taking Carafate within the esophagus. Air was suctioned from the stomach prior to withdrawal of the scope. The patient tolerated the procedure well.
[2021-08-05 12:56] VITALS: BP 97/68; PULSE 70
== END 2021-08-05 13:15 | disposition home or self-care (01) ==
LOC: JD.SDS 09:47
PROVIDERS: ATTEND Surgery
DX: K31.89 Other diseases of stomach and duodenum (principal); K44.9 Diaphragmatic hernia without obstruction or gangrene; K21.00 Gastro-esophageal reflux disease with esophagitis, without bleeding; F41.9 Anxiety disorder, unspecified; F32.A Depression, unspecified; G43.909 Migraine, unspecified, not intractable, without status migrainosus; E66.9 Obesity, unspecified; E55.9 Vitamin D deficiency, unspecified; Z79.899 Other long term (current) drug therapy; Z91.040 Latex allergy status; Z90.49 Acquired absence of other specified parts of digestive tract; Z98.890 Other specified postprocedural states; Z68.25 Body mass index [BMI] 25.0-25.9, adult
CPT/HCPCS: 43239; J2250; J2704; J7120; 00731

== ENCOUNTER 2021-08-07 16:39 | Emergency (ER) | payer OTHER ==
[2021-08-07 17:01] VITALS: BP 101/73; PULSE 66
[2021-08-07] MEDS ORDERED: HYDROmorphone 1 MG/ML Syringe IM ONE (17:13)
[2021-08-07] MEDS ORDERED: Alum Hydrox/Mag Hydrox/Simeth 30 ML, Lidocaine 2% 15 ML PO ONE ×2 (17:14)
--- NOTE | 2021-08-07 17:22 | EDM.PDOC ---
ED HPI GENERAL MEDICAL PROBLEM - General Chief Complaint: General Stated Complaint: POST PROCEDURAL PAIN Time Seen by Provider: 08/07/21 16:46 Source of Information: Reports: Patient, Old Records, RN Notes Reviewed - History of Present Illness INITIAL COMMENTS - FREE TEXT/NARRATIVE: Patient is a 41-year-old female presenting to the emergency department with complaints of epigastric pain. She reports she has had discomfort in the epigastrium for quite some time. She had EGD completed 2 days ago with general surgeon, Dr. Galindo. Results revealed sliding hiatal hernia with esophagitis and bile reflux.. Biopsies were collected at that time. She reports since 11 PM last evening, she has been having increased discomfort. States this is the first time that she would really call the discomfort" pain ". Reports pain worsens with oral intake. She contacted her primary care provider, Tiera Tolentino, who states that she has maxed out on her GI medications and that she should come to the ER. Patient is currently taking Carafate, Reglan, Zofran, and Protonix. She reports she has been using [id number] Tums and Pepcid with little relief. Denies any vomiting or diarrhea. She has had no black stools. Upper Abdomen Pain Score (Numeric/FACES): 4 - Related Data Allergies Allergy/AdvReac Type Severity Reaction Status Date / Time Estrogens Allergy Severe unknown Verified 08/07/21 16:54 latex Allergy Severe Anaphylactic Verified 08/07/21 16:54 Shock Home Meds: Home Meds Aspirin/Acetaminophen/Caffeine [Excedrin Migraine Caplet] 2 tab PO Q6H PRN 08/04/21 [History] Biotin 1 mg PO DAILY 08/04/21 [History] Calcium Carb/D3/Magnesium/Zinc [Manohar Mag Zinc-D Tablet] 1 tab PO DAILY 08/04/21 [History] Calcium Carbonate [Tums Extra Strength] 4 - 6 tab PO Q4H PRN 08/04/21 [History] Cholecalciferol (Vitamin D3) [Vitamin D3] 1,000 unit PO DAILY 08/04/21 [History] Cyanocobalamin (Vitamin B-12) [Vitamin B-12] 1,000 mcg PO DAILY 08/04/21 [History] DULoxetine [Cymbalta] 60 mg PO DAILY 08/04/21 [History] Fluticasone Propionate [Flonase] 1 dose NASBOTH BID 08/04/21 [History] LORazepam [Ativan] 0.5 mg PO Q8H PRN 08/04/21 [History] Lifitegrast [Xiidra] 1 drop EYEBOTH ASDIRECTED PRN 08/04/21 [History] Metoclopramide HCl [Reglan] 10 mg PO TID PRN 08/04/21 [History] Mv-Min/Iron/Folic/Calcium/Vitk [Women's Daily Formula Tablet] 1 tab PO DAILY 08/04/21 [History] Pantoprazole Sodium [Protonix] 40 mg PO BID 08/04/21 [History] SUMAtriptan [Imitrex] 50 mg PO ASDIRECTED PRN 08/04/21 [History] Sucralfate [Carafate] 1 gm PO QID 08/04/21 [History] Topiramate 50 mg PO BEDTIME 08/04/21 [History] Ubrogepant [Ubrelvy] 50 mg PO DAILY 08/04/21 [History] ondansetron HCL [Zofran] 4 mg PO Q6H PRN 08/04/21 [History] Past Medical History HEENT History: Reports: Allergic Rhinitis, Impaired Vision, Sinusitis, Other (See Below) Other HEENT History: right hearing loss, sore throat, recurrent ear infeciton, sinus infections Cardiovascular History: Reports: Blood Clots/VTE/DVT, Other (See Below) Other Cardiovascular History: palpitations at night Respiratory History: Reports: PE, Other (See Below) Other Respiratory History: cough Gastrointestinal History: Reports: Chronic Diarrhea, Gastritis, GERD, Helicobacter Pylori, Other (See Below) Other Gastrointestinal History: IBS, delayed gastric emptyinh, gastric ulcer Genitourinary History: Reports: Urinary Incontinence 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, , Other (See Below) Other 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 MACHINE OPERATOR History: abnormal uterine bleeding, vaginal discomfort Musculoskeletal History: Reports: Fracture, Gout, Other (See Below) Other Musculoskeletal History: foot tendinitis, left foot pain Neurological History: Reports: Migraines Psychiatric History: Reports: Anxiety, Depression Endocrine/Metabolic History: Reports: Vitamin D Deficiency, Other (See Below) Other Endocrine/Metabolic History: hair loss, goiter Hematologic History: Reports: Anemia Immunologic History: Reports: None Oncologic (Cancer) History: Reports: None Dermatologic History: Reports: Other (See Below) Other Dermatologic History: contact dermatitis, plantar wart to foot, folliculitis - Infectious Disease History Infectious Disease History: Reports: Chicken Pox - Past Surgical History Head Surgeries/Procedures: Reports: None HEENT Surgical History: Reports: Adenoidectomy, Myringotomy w Tube(s), Tonsillectomy Cardiovascular Surgical History: Reports: None Respiratory Surgical History: Reports: None GI Surgical History: Reports: Cholecystectomy, EGD Female Surgical History: Reports: None, Other (See Below) Other Female Surgeries/Procedures: hysteroscopy Endocrine Surgical History: Reports: None Neurological Surgical History: Reports: None Musculoskeletal Surgical History: Reports: None Oncologic Surgical History: Reports: None Social & Family History - Family History Family Medical History: No Pertinent Family History Endocrine/Metabolic: Reports: Diabetes, type II - Tobacco Use Tobacco Use Status *Q: Never Tobacco User - Caffeine Use Caffeine Use: Reports: None Other Caffeine Use: occassionally - Recreational Drug Use Recreational Drug Use: No - Living Situation & Occupation Living situation: Reports: Occupation: Employed ED ROS GENERAL - Review of Systems Review Of Systems: Comprehensive ROS is negative, except as noted in HPI. ED EXAM, GENERAL - Physical Exam Exam: See Below Exam Limited By: No Limitations General Appearance: Alert, Mild Distress Respiratory/Chest: No Respiratory Distress, Lungs Clear, Normal Breath Sounds, No Accessory Muscle Use, Chest Non-Tender Cardiovascular: Normal Peripheral Pulses, Regular Rate, Rhythm, No Edema, No Gallop, No JVD, No Murmur, No Rub GI/Abdominal: Normal Bowel Sounds, Soft, No Organomegaly, No Distention, No Abnormal Bruit, No Mass, Tender (epigastric) Neurological: Alert, Oriented, CN II-XII Intact, Normal Cognition, Normal Gait, Normal Reflexes, No Motor/Sensory Deficits Psychiatric: Normal Affect, Normal Mood Skin Exam: Warm, Dry, Intact, Normal Color, No Rash Course - Vital Signs Last Recorded V/S: Last Vital Signs Temp 98.1 F 08/07/21 16:57 Pulse 66 08/07/21 16:57 Resp 20 08/07/21 16:57 BP 101/73 08/07/21 16:57 Pulse Ox 98 08/07/21 16:57 - Orders/Labs/Meds Orders: Active Orders 24 hr Category Date Time Status Chest 2V [CR] Stat Exams 08/07/21 17:13 Taken Meds: Medications Discontinued Medications Generic Name Dose Route Start Last Admin Trade Name Ruthy PRN Reason Stop Dose Admin Al Hydroxide/Mg Hydroxide 30 0 ml 08/07/21 17:14 08/07/21 17:23 ml/ Lidocaine HCl 15 ml PO 08/07/21 17:15 45 ml ONETIME ONE Administration Hydromorphone HCl 1 mg 08/07/21 17:13 08/07/21 17:23 Hydromorphone 1 Mg/Ml Syringe IM 08/07/21 17:14 1 mg ONETIME ONE Administration - Re-Assessments/Exams Free Text/Narrative Re-Assessment/Exam: 41-year-old female presenting to the emergency department with complaints of worsening of her chronic epigastric pain. She is 2 days post EGD. She has been taking her Carafate, Reglan, Zofran, Protonix as prescribed. She is also use [id number] Pepcid and Tums without relief. Called her primary care today who told her to come to the ER as she is maxed out on her GI medications. Called and visited with general surgeon, Dr. Galindo, who completed her EGD 2 days ago. He states that he will contact her when biopsy results are available and follow-up with her in the clinic. He recommended that we start her on simethicone as this may offer her some relief. Discussed this with patient and she does agree to be started on simethicone. For tonight's purposes, I will give her an injection of Dilaudid and GI cocktail to see if that gives her some temporary relief. I will also order chest x-ray to ensure there is no evidence of perforation, however my suspicion for this is very low. 08/07/21 17:52 Chest x-ray shows no air under the diaphragm to suggest perforation. Patient is feeling much better after the medications given. Discussed symptomatic treatment including bland diet. She reports that she eats quite a bit of cauliflower rice which could be causing increased gas. Recommend she begin taking simethicone tabs [id number]. Discussed foods that will not further irritate her condition. Also discussed that she could try dissolving her Carafate and water prior to taking it so that better coats her esophagus on the way down. Dr. Galindo will be in contact and arrange for clinic follow-up when biopsy results are available. Discharge instructions as documented. Departure - Departure Time of Disposition: 17:53 Disposition: Home, Self-Care 01 Condition: Good Clinical Impression: Epigastric abdominal pain - Discharge Information *PRESCRIPTION DRUG MONITORING PROGRAM REVIEWED*: No *COPY OF PRESCRIPTION DRUG MONITORING REPORT IN PATIENT NISHANT: No Instructions: Abdominal Pain, Adult, [id number] Referrals: Jyoti Avila, [employer] [Primary Care Provider] - Forms: ED Department Discharge Additional Instructions: Continue to take previously prescribed medications as ordered. Try dissolving your Carafate in water prior to taking so that it better coats your esophagus on the way down. Purchase [id number] simethicone and take per label instructions. Eat only bland foods until symptoms improve. Follow-up with Dr. Galindo as planned. Return to ER as needed. Sepsis Event Note (ED) - Focused Exam Vital Signs: Vital Signs Temp Pulse Resp BP Pulse Ox 08/07/21 16:57 98.1 F 66 20 101/73 98 - My Orders Last 24 Hours: My Active Orders 08/07/21 17:13 Chest 2V [CR] Stat - Assessment/Plan Last 24 Hours: My Active Orders 08/07/21 17:13 Chest 2V [CR] Stat
--- NOTE | 2021-08-07 18:59 | CR ---
Chest: Frontal view of the chest was obtained. Comparison: Prior chest x-ray of 12/01/18. Heart size and mediastinum are normal. Lungs are clear with no acute parenchymal change. Surgical clips are seen from prior cholecystectomy. No discrete bony abnormality is appreciated. Impression: 1. Nothing acute is seen on frontal chest x-ray. Diagnostic code #1
== END 2021-08-07 18:04 | disposition home or self-care (01) ==
LOC: JD.ED 16:39
DX: R10.13 Epigastric pain (principal); K21.9 Gastro-esophageal reflux disease without esophagitis; Z79.82 Long term (current) use of aspirin; Z79.899 Other long term (current) drug therapy; Z91.040 Latex allergy status; Z88.8 Allergy status to other drugs, medicaments and biological substances
CPT/HCPCS: 71046; 96372; 99284; A9270; J1170

== ENCOUNTER 2021-11-21 08:23 | Emergency (ER) | payer OTHER ==
[2021-11-21 08:32] VITALS: BP 103/78; PULSE 74
[2021-11-21] MEDS ORDERED: HYDROmorphone 1 MG/ML Syringe IVPUSH ONE (08:45)
[2021-11-21] MEDS ORDERED: Sodium Chloride 0.9% 10 ML Syringe FLUSH PRN (08:45)
[2021-11-21] MEDS ORDERED: Metoclopramide 10 MG/2 ML SDV IVPUSH ONE (08:45)
[2021-11-21] MEDS ORDERED: methylPREDNISolone Sodium Succinate 125 MG/2 ML SDV IVPUSH ONE (08:46)
[2021-11-21] MEDS ORDERED: Ketorolac 30 MG/ML SDV IVPUSH SCH (09:00)
[2021-11-21] MEDS ORDERED: Ketorolac 30 MG/ML SDV IVPUSH ONE (09:15)
[2021-11-21] MEDS ORDERED: HYDROmorphone 0.5 MG/0.5 ML Syringe IVPUSH ONE ×2 (10:11→11:10)
[2021-11-21] MEDS ORDERED: Orphenadrine 100 MG Tab.ER PO ONE (11:10)
== END 2021-11-21 11:47 | disposition home or self-care (01) ==
LOC: JD.ED 08:23
DX: S39.012A Strain of muscle, fascia and tendon of lower back, initial encounter (principal); Z91.040 Latex allergy status; Z79.82 Long term (current) use of aspirin; Z79.899 Other long term (current) drug therapy
CPT/HCPCS: 96374; 96375; 96376; 99283; A9270; J1170; J1885; J2765; J2930

== ENCOUNTER 2022-05-31 17:12 | Emergency (ER) | payer OTHER ==
[2022-05-31 21:01] LABS: ESTIMATED GFR 122 mL/min (>60)
[2022-05-31] MEDS ORDERED: EPINEPHrine 1 MG/ML SDV IM PRN (21:07)
[2022-05-31] MEDS ORDERED: diphenhydrAMINE 50 MG/ML SDV IVPUSH PRN (21:07)
[2022-05-31] MEDS ORDERED: methylPREDNISolone Sodium Succinate 125 MG/2 ML SDV IVPUSH PRN (21:07)
[2022-05-31] MEDS ORDERED: Famotidine 20 MG/2 ML SDV IVPUSH PRN (21:07)
[2022-05-31] MEDS ORDERED: Sodium Chloride 0.9% 10 ML Syringe FLUSH SCH (21:15)
[2022-05-31 22:56] VITALS: BP 110/68; PULSE 76
== END 2022-05-31 22:57 | disposition home or self-care (01) ==
LOC: JD.ED 17:12
DX: U07.1 COVID-19 (principal); Z91.040 Latex allergy status; Z88.8 Allergy status to other drugs, medicaments and biological substances; Z79.899 Other long term (current) drug therapy; Z90.49 Acquired absence of other specified parts of digestive tract
CPT/HCPCS: 36415; 80048; 99284; M0222; Q0222; 99282

== ENCOUNTER 2023-11-22 07:43 | Emergency (ER) | payer OTHER ==
[2023-11-22 09:59] VITALS: BP 128/71; PULSE 77
== END 2023-11-22 09:59 | disposition home or self-care (01) ==
LOC: JD.ED 07:43
DX: M79.605 Pain in left leg (principal); K21.9 Gastro-esophageal reflux disease without esophagitis; Z79.899 Other long term (current) drug therapy; Z91.040 Latex allergy status; Z88.8 Allergy status to other drugs, medicaments and biological substances
CPT/HCPCS: 93971-26-LT; 93971-LT; 99283

== ENCOUNTER 2024-01-29 15:53 | Emergency (ER) | payer OTHER ==
[2024-01-29 16:48] LABS: BASOPHILS ABSOLUTE AUTO 0.1 K/mm3 (0.0-0.2); BASOPHILS PERCENT AUTO 0.9 % (0.0-1.0); EOSINOPHILS ABSOLUTE AUTO 0.2 K/mm3 (0.0-0.4); EOSINOPHILS PERCENT AUTO 2.2 % (0.0-6.0); HEMATOCRIT 42.3 % (37.0-47.0); HEMOGLOBIN 13.9 gm/dl (12.0-16.0); IMMATURE GRAN ABSOLUTE AUTO 0.01 K/mm3 (0.00-0.05); IMMATURE GRAN PERCENT AUTO 0.1 % (0.0-0.4); LYMPHOCYTES ABSOLUTE AUTO 2.8 K/mm3 (1.0-4.8); LYMPHOCYTES PERCENT AUTO 34.4 % (24.0-44.0); MEAN CORPUSCULAR HEMOGLOBIN 28.3 pg (28.0-32.0); MEAN CORPUSCULAR HGB CONC 32.9 g/dl (32.0-36.0); MEAN CORPUSCULAR VOLUME 86.2 fl (83.0-99.0); MEAN PLATELET VOLUME 11.9 fl (9.4-12.3); MONOCYTES ABSOLUTE AUTO 0.9 K/mm3 (0.0-0.8); MONOCYTES PERCENT AUTO 11.1 % (0.0-8.0); NEUTROPHILS ABSOLUTE AUTO 4.1 K/mm3 (1.8-7.7); NEUTROPHILS PERCENT AUTO 51.3 % (41.0-71.0); PLATELET COUNT,PLT 213 K/mm3 (150-400); RED BLOOD CELL COUNT 4.91 M/mm3 (4.10-5.30); WHITE BLOOD CELL COUNT,WBC 8.05 K/mm3 (3.9-11.3)
[2024-01-29 16:52] LABS: BILIRUBIN,URINE NEGATIVE (Negative); GLUCOSE,URINE NEGATIVE (Negative); KETONES,URINE NEGATIVE (Negative); LEUKOCYTE ESTERASE,URINE 2+ (Negative); NITRITE,URINE NEGATIVE (Negative); OCCULT BLOOD,URINE 3+ (Negative); PH,URINE 7.5 (5.0-8.0); PROTEIN,URINE NEGATIVE (Negative); UROBILINOGEN,URINE 0.2 (0.2-1.0)
[2024-01-29 17:05] LABS: APPEARANCE,URINE SLT CLOUDY (Clear)
[2024-01-29 17:07] LABS: BACTERIA,URINE FEW /hpf (FEW); COLOR,URINE YELLOW (Yellow); MUCUS,URINE FEW /hpf (FEW); RBC,URINE 50-75 /hpf (0-5)
[2024-01-29] MEDS: Iopamidol 755 Mg/ML 100 ML Bottle IVPUSH ONE (17:07)
[2024-01-29] MEDS: Sodium Chloride 0.9% 100 ML IV SCH (17:07)
[2024-01-29 17:20] LABS: ALBUMIN 3.6 g/dl (3.4-5.0); ANION GAP 12.2 (5-15); BILIRUBIN TOTAL 0.3 mg/dL (0.2-1.0); EST CRCL DRUG DOSING (CG) 80.06 mL/min; POTASSIUM,K 3.2 mEq/L (3.5-5.1); PRO B-TYPE NATRIUR PEPT,BNPPRO 121 pg/mL (0-125); PROTEIN TOTAL,TP 7.2 g/dl (6.4-8.2)
[2024-01-29 17:23] LABS: HCG QUALITATIVE,SERUM NEGATIVE (NEGATIVE)
[2024-01-29] MEDS: Potassium Chloride 20 MEQ Tab.ER PO ONE (18:31)
[2024-01-29 19:26] VITALS: BP 121/78; PULSE 62
== END 2024-01-29 18:40 | disposition home or self-care (01) ==
LOC: JD.ED 15:53
DX: H53.8 Other visual disturbances (principal); N30.01 Acute cystitis with hematuria; E87.6 Hypokalemia; R93.0 Abnormal findings on diagnostic imaging of skull and head, not elsewhere classified; K21.9 Gastro-esophageal reflux disease without esophagitis; Z91.040 Latex allergy status; Z88.8 Allergy status to other drugs, medicaments and biological substances; Z79.899 Other long term (current) drug therapy; Z86.19 Personal history of other infectious and parasitic diseases
CPT/HCPCS: 36415; 70450; 70496; 70498; 71046; 80053; 81001; 81003; 83880; 84484; 84703; 85025; 87086; 93005; 99284; A9270; J3490; Q9967; 93010

== ENCOUNTER 2024-07-25 18:23 | Emergency (ER) | payer OTHER ==
[2024-07-25] MEDS: Lactated Ringers 1,000 ML IV ONE (19:32)
[2024-07-25] MEDS: Ketorolac 30 MG/ML SDV IVPUSH ONE (19:33)
[2024-07-25] MEDS: diphenhydrAMINE 50 MG/ML SDV IVPUSH ONE (19:35)
[2024-07-25] MEDS: Metoclopramide 10 MG/2 ML SDV IVPUSH ONE (19:36)
[2024-07-25 21:33] VITALS: BP 111/71; PULSE 80
== END 2024-07-25 21:24 | disposition home or self-care (01) ==
LOC: JD.ED 18:23
DX: G43.909 Migraine, unspecified, not intractable, without status migrainosus (principal); K21.9 Gastro-esophageal reflux disease without esophagitis; Z79.899 Other long term (current) drug therapy; Z91.040 Latex allergy status; Z88.8 Allergy status to other drugs, medicaments and biological substances
CPT/HCPCS: 96361; 96374; 96375; 99283; J1200; J1885; J2765; J7120

== ENCOUNTER 2024-12-08 10:51 | Emergency (ER) | payer OTHER ==
[2024-12-08] MEDS: Diazepam 5 MG Tab PO ONE (11:55)
[2024-12-08] MEDS: predniSONE 20 MG Tab PO ONE (11:55)
[2024-12-08] MEDS: Ketorolac 60 MG/2 ML SDV IM ONE (11:55)
[2024-12-08] MEDS: oxyCODONE 5 MG Tab PO ONE (13:20)
[2024-12-08] MEDS: Ondansetron 4 MG Tab.DIS PO ONE (13:21)
[2024-12-08 14:45] VITALS: BP 110/82; PULSE 83
== END 2024-12-08 14:43 | disposition home or self-care (01) ==
LOC: JD.ED 10:51
DX: S39.012A Strain of muscle, fascia and tendon of lower back, initial encounter (principal); K21.9 Gastro-esophageal reflux disease without esophagitis; Z86.16 Personal history of COVID-19; Z90.49 Acquired absence of other specified parts of digestive tract; Z88.8 Allergy status to other drugs, medicaments and biological substances; Z91.040 Latex allergy status; Z79.899 Other long term (current) drug therapy; X50.1XXA Overexertion from prolonged static or awkward postures, initial encounter
CPT/HCPCS: 96372; 99283; A9270; J1885; J7512

== ENCOUNTER 2025-01-19 18:57 | Emergency (ER) | payer OTHER ==
[2025-01-19] MEDS ORDERED: Sodium Chloride 0.9% 10 ML Syringe FLUSH PRN (19:32)
[2025-01-19 19:58] LABS: BASOPHILS ABSOLUTE AUTO 0.1 K/mm3 (0.0-0.2); EOSINOPHILS ABSOLUTE AUTO 0.3 K/mm3 (0.0-0.4); EOSINOPHILS PERCENT AUTO 2.3 % (0.0-6.0); HEMATOCRIT 42.8 % (37.0-47.0); HEMOGLOBIN 13.6 gm/dl (12.0-16.0); IMMATURE GRAN ABSOLUTE AUTO 0.14 K/mm3 (0.00-0.05); IMMATURE GRAN PERCENT AUTO 1.1 % (0.0-0.4); MEAN CORPUSCULAR HEMOGLOBIN 27.9 pg (28.0-32.0); MEAN CORPUSCULAR HGB CONC 31.8 g/dl (32.0-36.0); MEAN CORPUSCULAR VOLUME 87.9 fl (83.0-99.0); MEAN PLATELET VOLUME 10.8 fl (9.4-12.3); MONOCYTES ABSOLUTE AUTO 1.4 K/mm3 (0.0-0.8); MONOCYTES PERCENT AUTO 11.4 % (0.0-8.0); NEUTROPHILS ABSOLUTE AUTO 6.5 K/mm3 (1.8-7.7); NEUTROPHILS PERCENT AUTO 52.2 % (41.0-71.0); PLATELET COUNT,PLT 263 K/mm3 (150-400); RED BLOOD CELL COUNT 4.87 M/mm3 (4.10-5.30); WHITE BLOOD CELL COUNT,WBC 12.37 K/mm3 (3.9-11.3)
[2025-01-19] MEDS: diphenhydrAMINE 50 MG/ML SDV IVPUSH ONE (20:00)
[2025-01-19] MEDS: methylPREDNISolone Sodium Succinate 125 MG/2 ML SDV IVPUSH ONE (20:00)
[2025-01-19 20:24] LABS: A/G RATIO 0.9 (1-2); ALBUMIN 3.2 g/dl (3.4-5.0); ANION GAP 10.3 (5-15); BILIRUBIN TOTAL 0.2 mg/dL (0.2-1.0); BUN/CREATININE RATIO 15.6 (14-18); CALCIUM 8.9 mg/dL (8.5-10.1); CREATININE 0.9 mg/dL (0.55-1.02); EST CRCL DRUG DOSING (CG) 88.06 mL/min; POTASSIUM,K 3.3 mEq/L (3.5-5.1); PROTEIN TOTAL,TP 6.9 g/dl (6.4-8.2)
[2025-01-20 00:56] VITALS: BP 104/54; PULSE 77
== END 2025-01-20 00:37 | disposition home or self-care (01) ==
LOC: JD.ED 18:57
DX: R07.9 Chest pain, unspecified (principal); T78.40XA Allergy, unspecified, initial encounter; Z88.8 Allergy status to other drugs, medicaments and biological substances; Z91.040 Latex allergy status; Z79.899 Other long term (current) drug therapy; K21.9 Gastro-esophageal reflux disease without esophagitis; Z86.16 Personal history of COVID-19; Z90.49 Acquired absence of other specified parts of digestive tract
CPT/HCPCS: 36415; 71045; 80053; 84484; 84703; 85025; 93005; 96374; 96375; 99285; J1200; J2919; 93010; 99284

== ENCOUNTER 2025-03-23 19:02 | Emergency (ER) | payer OTHER ==
[2025-03-23 20:49] VITALS: BP 117/79; PULSE 74
== END 2025-03-23 20:25 | disposition home or self-care (01) ==
LOC: JD.ED 19:02
DX: M79.89 Other specified soft tissue disorders (principal); Z91.040 Latex allergy status; Z88.8 Allergy status to other drugs, medicaments and biological substances; Z86.16 Personal history of COVID-19
CPT/HCPCS: 99283